=== PATIENT | female | born 1970 | race Caucasian/White ===

== ENCOUNTER 2016-11-25 20:36 | Observation (INO) ==
[2016-11-25] MEDS ORDERED: 0.9 % Sodium Chloride 1,000 ML IVC ONE (20:55)
[2016-11-25 21:26] LABS: Basophils # 0.1 K/mcL (0.0-0.2); Basophils % 0.4 %; Eosinophils # 0.2 K/mcL (0.0-0.6); Eosinophils % 1.5 %; Hematocrit 40.3 % (35.3-44.9); Hemoglobin 13.3 g/dL (11.5-15.4); Immature Granulocytes % 0.5 % (0-4); Lymphocytes # 3.2 K/mcL (0.6-4.6); Lymphocytes % 21.4 %; Mean Corpuscular Hemoglobin 31.2 pg (28.0-33.3); Mean Corpuscular Volume 94.6 fL (83.0-100.0); Mean Platelet Volume 9.5 fL (9.4-12.4); Monocytes % 6.5 %; Neutrophils # 10.4 K/mcL (1.6-8.9); Platelet Count 428 K/mcL (140-400); Red Blood Count 4.26 M/mcL (3.82-4.97); Red Cell Distribution Width 15.1 % (11.5-14.5); Segmented Neutrophils % 69.7 %
[2016-11-25 21:48] LABS: INR 1.7; Prothrombin Time 18.8 Seconds (9.4-12.1)
[2016-11-25 22:00] LABS: Albumin 3.4 g/dL (3.5-5.0); Bilirubin,Direct 0.1 mg/dL (0.0-0.5); Bilirubin,Indirect 0.2 mg/dL (0.0-1.2); Bilirubin,Total 0.3 mg/dL (0.2-1.2); Calcium 9.1 mg/dL (8.6-10.8); Globulin 3.3 g/dL (2.4-3.5); Total Protein 6.7 g/dL (6.0-8.3)
[2016-11-26 00:22] LABS: Bilirubin,Urine Negative (Negative); Blood,Urine Small (Negative); Clarity,Urine Cloudy (Clear); Color,Urine Yellow (Yellow); Glucose,Urine (UA) Normal (Normal); Ketones,Urine Negative (Negative); Leukocyte Esterase,Urine Small (Negative); Nitrite,Urine Negative (Negative); PH,Urine 5.5 pH Units (5.0-8.0); Protein,Urine Negative (Neg-Trace); Specific Gravity,Urine 1.015 (1.010-1.025); Urobilinogen,Urine Normal (Normal)
[2016-11-26 00:24] LABS: Bacteria,Urine Few per hpf (None-Few); Hyaline Casts,Urine Few per lpf (None-Few); Squamous Epithelial Cell,Urine Many per lpf (None-Few)
[2016-11-26] MEDS ORDERED: 0.9 % Sodium Chloride 1,000 ML IVC ONE (00:26)
[2016-11-26] MEDS ORDERED: Naloxone 0.4 MG/ML INJ IVP PRN (00:47)
[2016-11-26] MEDS ORDERED: Fluticasone Propionate Nasal 50 MCG/SPRAY BOTTLE NS PRN (00:49)
--- NOTE | 2016-11-26 01:18 | Emergency Department Note ---
Disposition Clinical Impression: Acute kidney injury, Dehydration, Decreased urine output Disposition: Admitted As Inpatient Condition: Good Time of Disposition: 01:29 General Adult HPI - General Chief complaint: ED General Medical Stated complaint: Dehydration, urinary problems Time Seen by Provider: 11/25/16 20:52 Source: patient Mode of arrival: ambulatory Limitations: no limitations Nursing Notes Reviewed: Yes Vital Signs Reviewed: Yes - History of Present Illness HPI Narrative: Patient presents emergency room with complaints of decreased urinary output since 9:30 this morning. She said that she has not had any urination since that time. She has a history kidney issues and dehydration. Patient was concerned because her kidney function was tested a week ago and is 1.57. She wanted to make sure that her kidneys were not being effective here today. Patient denies any chest pain shortness of breath headache or vision change. Denies any fevers or chills Onset (ago): Just [employer] Location: back Radiation: non-radiation Pain Severity: mild Pain Scale: 3 Quality: aching Consistency: constant Improves with: nothing Worsens with: movement Associated symptoms: Reports: loss of appetite, malaise Treatments Prior to Arrival: none - Related Data Home Medications Medication Instructions Recorded Confirmed Amlodipine [Amlodipine Besylate] 10 mg PO HS 05/29/15 04/28/16 Azathioprine [Imuran] 75 mg PO DAILY 05/29/15 04/28/16 Carvedilol [Coreg] 25 mg PO BID 05/29/15 04/28/16 Clopidogrel [Plavix] 75 mg PO DAILY 05/29/15 04/28/16 Divalproex (12 HR) [Depakote (12 500 mg PO BID 05/29/15 04/28/16 HR)] Magnesium Oxide [Magnesium] 500 mg PO DAILY 05/29/15 04/28/16 Omeprazole [PriLOSEC] 20 mg PO HS 05/29/15 04/28/16 Promethazine [Phenergan] 25 mg PO HS 05/29/15 04/28/16 Ropinirole HCl [Requip] 4 mg PO HS 05/29/15 04/28/16 Simvastatin [Zocor] 20 mg PO HS 05/29/15 04/28/16 Warfarin [Coumadin] 5 mg PO SUMOTUTHFRSA 05/29/15 04/28/16 clonazePAM [Klonopin] 1 mg PO HS 05/29/15 04/28/16 DULoxetine [Cymbalta] 30 mg PO BID 04/28/16 04/28/16 Diclofenac Sodium [Voltaren] 75 mg PO Q8HR 04/28/16 04/28/16 Enoxaparin [Lovenox] 80 mg SQ Q12HR 04/28/16 04/28/16 Fluticasone Propionate Nasal 1 spr NS DAILY PRN 04/28/16 04/28/16 [Flonase] Gabapentin [Neurontin] 800 mg PO TID 04/28/16 04/28/16 Hydrocodone/Acetaminophen [[place] 1 each PO BID PRN 04/28/16 04/28/16 10-325 Tablet] PredniSONE [Parth] 4 mg PO DAILY 04/28/16 04/28/16 Valsartan/Hydrochlorothiazide 1 each PO DAILY 04/28/16 04/28/16 [Diovan Hct 160-12.5 mg Tab] Warfarin [Coumadin] 2.5 mg PO WE 04/28/16 04/28/16 Allergies Allergy/AdvReac Type Severity Reaction Status Date / Time Penicillins Allergy See Verified 04/28/16 09:31 Comments phenytoin [From Dilantin] Allergy Hives Verified 04/28/16 09:31 All systems ED: reviewed and negative except as stated. Constitutional: Denies: fever, chills ENT ED: Denies: throat pain Cardiovascular: Denies: chest pain, palpitations, dyspnea on exertion Respiratory: Denies: cough, dyspnea, wheezes, hemoptysis Gastrointestinal: Reports: abdominal pain. Denies: nausea, vomiting, diarrhea Genitourinary: Denies: urgency, dysuria, frequency Musculoskeletal: Reports: back pain. Denies: neck pain Neurological: Denies: headache Past Medical History - Past Medical History Attestation: Yes The following information was validated with the patient. Source: patient Medical history: Reports: arthritis, asthma, cancer, coronary artery disease, CVA, DVT, fibromyalgia, hyperlipidemia, hypertension, other Surgical history: Reports: cholecystectomy, hysterectomy, other Psychiatric history: Reports: depression - Social History Smoking Status: Current every day smoker Smokeless Tobacco Status: No Alcohol use: Reports: none Drug use: Reports: none Physical Exam - General Limitations: no limitations General appearance: alert, in no apparent distress - Head Head exam: atraumatic, normocephalic, normal inspection - Neck Neck exam: Present: normal inspection, full ROM, trachea midline - Chest Chest inspection: Present: normal inspection, symmetric chest wall rise - Respiratory Respiratory exam: Present: normal lung sounds bilaterally - Cardiovascular Cardiovascular exam: Present: regular rate, normal rhythm, normal heart sounds - Abdominal Exam Abdominal exam: Present: soft, Non-Tender, normal bowel sounds. Absent: tenderness, distention, guarding, rebound, rigidity, Rousseau's sign, Rovsing's sign, tenderness at McBurney's Point - Extremities Exam Extremities exam: Present: normal inspection, full ROM, normal capillary refill. Absent: tenderness - Back Exam Back exam: Present: normal inspection, full ROM. Absent: tenderness (Bilateral flank discomfort) - Neurological Exam Neurological exam: Present: alert, oriented X3 - Skin Skin exam: Present: warm, dry, intact, normal color Course Course Narrative: Patient seen and examined at the time of arrival. See history of present illness. 46-year-old female presents emergency room for evaluation of dehydration. Says that she has not had urinary output since 9:30 this morning. She has a known history of kidney disease and had a creatinine drawn just over one week ago that was 1.57. She is concerned that her kidneys are getting worse because she is having bilateral flank pain and decreased urine output along with dark color. Patient denies any recent illnesses, no new medications , no fevers chills, nausea vomiting diarrhea, chest pain shortness of breath, headache or vision change. Patient's main complaint is generalized malaise muscle aches dehydration. Patient had laboratory workup completed this time single liter of fluid given for treatment. Patient does not have any history of congestive heart failure this point. Vital signs are reviewed and are stable. Lungs are clear heart is regular mucous membranes are moist. Abdomen is soft nontender nondistended with no guarding or rigidity. She was also 4 extremities with purpose. She has good capillary refill. She has good DP PT pulses bilaterally. Patient will have reevaluation disposition determined once labs and fluids are provided. - Reevaluation(s) Reevaluation #1: Fluids been given. Patient is lying complaining of a mild headache at this time. Labs show mildly elevated white blood cell count but there is a significant jump in her creatinine consistent with acute kidney insufficiency. Patient has a creatinine today of 2.95. Second liter of fluids ordered at this point. Urine was reviewed and shows blood in the urine with no acute bacteria this point. This appears to be contaminant. Patient will not be started on antibiotics. She does not have a history of renal calculi so little clinical concern for infected or impacted stone. Patient does not require antibiotics at this point. Will be to hydrate and reevaluate creatinine. Discussion was had at the bedside with the patient's family and patient was informed that recommendation for admission will be considered. Patient understands this and is happy with our treatment course of care. We will recommend admission of this time for which she feels comfortable having this completed. Hospitalist was juan and Dr. reyes review the patient's presentation symptoms medical history. Urinalysis was reviewed showing no concerning this point for infection. Patient provided with fluids and is feeling better. Vital signs of a stable throughout the course of care. No other recommendations for the hospitalist at this time. Patient will be admitted for what appears to be dehydration and acute kidney insufficiency. Multiple medical problems will be evaluated one the hospital as well including her underlying predetermine medical conditions. Patient is resting comfortably in bed in no distress at this time. We will continue to monitor in the emergency room until the admission process is completed Time: 01:28 Vital Signs Temperature 98.4 F 11/25/16 20:38 Pulse Rate 69 11/25/16 20:38 Respiratory Rate 18 11/25/16 20:38 Blood Pressure 184/103 11/25/16 20:38 O2 Sat by Pulse Oximetry 93 11/25/16 20:38 Temperature 98.4 F 11/25/16 20:38 Pulse Rate 73 11/26/16 00:49 Respiratory Rate 18 11/26/16 00:49 Blood Pressure 136/70 11/26/16 00:49 O2 Sat by Pulse Oximetry 97 11/26/16 00:49 Oxygen Delivery Oxygen Delivery Room Air Medical Decision Making - MDM Narrative Medical decision making narrative: Dehydration, acute kidney injury, generalized malaise - Medical Records Medical records reviewed: Yes I reviewed the patient's medical records. - Lab Data Lab results reviewed: Yes I reviewed the patient's lab results. Result diagrams: 11/25/16 21:19 11/25/16 21:41 Lab Results 11/25/16 11/25/16 11/25/16 Range/Units 21:19 21:19 21:28 WBC 14.9 H (4.3-11.1) K/mcL RBC 4.26 (3.82-4.97) M/mcL Hgb 13.3 (11.5-15.4) g/dL Hct 40.3 (35.3-44.9) % MCV 94.6 (83.0-100.0) fL MCH 31.2 (28.0-33.3) pg MCHC 33.0 (31.6-35.5) g/dL RDW 15.1 H (11.5-14.5) % Plt Count 428 H (140-400) K/mcL MPV 9.5 (9.4-12.4) fL Immature Gran % 0.5 (0-4) % Seg Neutrophils % 69.7 % Lymphocytes % 21.4 % Monocytes % 6.5 % Eosinophils % 1.5 % Basophils % 0.4 % Neutrophils # 10.4 H (1.6-8.9) K/mcL Lymphocytes # 3.2 (0.6-4.6) K/mcL Monocytes # 1.0 (0.0-1.3) K/mcL Eosinophils # 0.2 (0.0-0.6) K/mcL Basophils # 0.1 (0.0-0.2) K/mcL PT 18.8 H (9.4-12.1) Seconds INR 1.7 Sodium (136-145) mEq/L Potassium (3.5-4.5) mEq/L Chloride (98-109) mEq/L Carbon Dioxide (19-29) mEq/L BUN (7-20) mg/dL Creatinine (0.57-1.11) mg/dL Est GFR ( Amer) (> 60) Est GFR (Non-Af Amer) (> 60) BUN/Creatinine Ratio (6-26) Glucose (70-99) mg/dL Calculated Osmolality (280-300) Calcium (8.6-10.8) mg/dL Total Bilirubin (0.2-1.2) mg/dL Direct Bilirubin (0.0-0.5) mg/dL Indirect Bilirubin (0.0-1.2) mg/dL AST (5-34) Units/L ALT (0-55) Units/L Alkaline Phosphatase (38-126) Units/L Serum Total Protein (6.0-8.3) g/dL Albumin (3.5-5.0) g/dL Globulin (2.4-3.5) g/dL Albumin/Globulin Ratio (1.1-2.2) Lipase (8-78) Units/L Urine Color (Yellow) Urine Clarity (Clear) Urine pH (5.0-8.0) pH Units Ur Specific [place] (1.010-1.025) Urine Protein (Neg-Trace) mg/dL Urine Glucose (UA) (Normal) mg/dL Urine Ketones (Negative) mg/dL Urine Blood (Negative) Urine Nitrite (Negative) Urine Bilirubin (Negative) Urine Urobilinogen (Normal) mg/dL Ur Leukocyte Esterase (Negative) Urine Microscopic RBC (0-3) per hpf Urine Microscopic WBC (0-3) per hpf Ur Squamous Epith Cells (None-Few) per lpf Urine Bacteria (None-Few) per hpf Hyaline Casts (None-Few) per lpf Ur Culture Indicated? (NO) Specimen Rejected Hemolyzed 11/25/16 11/26/16 Range/Units 21:41 00:00 WBC (4.3-11.1) K/mcL RBC (3.82-4.97) M/mcL Hgb (11.5-15.4) g/dL Hct (35.3-44.9) % MCV (83.0-100.0) fL MCH (28.0-33.3) pg MCHC (31.6-35.5) g/dL RDW (11.5-14.5) % Plt Count (140-400) K/mcL MPV (9.4-12.4) fL Immature Gran % (0-4) % Seg Neutrophils % % Lymphocytes % % Monocytes % % Eosinophils % % Basophils % % Neutrophils # (1.6-8.9) K/mcL Lymphocytes # (0.6-4.6) K/mcL Monocytes # (0.0-1.3) K/mcL Eosinophils # (0.0-0.6) K/mcL Basophils # (0.0-0.2) K/mcL PT (9.4-12.1) Seconds INR Sodium 136 (136-145) mEq/L Potassium 4.0 (3.5-4.5) mEq/L Chloride 98 (98-109) mEq/L Carbon Dioxide 27 (19-29) mEq/L BUN 19 (7-20) mg/dL Creatinine 2.65 H (0.57-1.11) mg/dL Est GFR ( Amer) 24 L (> 60) Est GFR (Non-Af Amer) 20 L (> 60) BUN/Creatinine Ratio 7 (6-26) Glucose 120 H (70-99) mg/dL Calculated Osmolality 285 (280-300) Calcium 9.1 (8.6-10.8) mg/dL Total Bilirubin 0.3 (0.2-1.2) mg/dL Direct Bilirubin 0.1 (0.0-0.5) mg/dL Indirect Bilirubin 0.2 (0.0-1.2) mg/dL AST 15 (5-34) Units/L ALT 14 (0-55) Units/L Alkaline Phosphatase 93 (38-126) Units/L Serum Total Protein 6.7 (6.0-8.3) g/dL Albumin 3.4 L (3.5-5.0) g/dL Globulin 3.3 (2.4-3.5) g/dL Albumin/Globulin Ratio 1.0 L (1.1-2.2) Lipase 20 (8-78) Units/L Urine Color Yellow (Yellow) Urine Clarity Cloudy A (Clear) Urine pH 5.5 (5.0-8.0) pH Units Ur Specific [place] 1.015 (1.010-1.025) Urine Protein Negative (Neg-Trace) mg/dL Urine Glucose (UA) Normal (Normal) mg/dL Urine Ketones Negative (Negative) mg/dL Urine Blood Small H (Negative) Urine Nitrite Negative (Negative) Urine Bilirubin Negative (Negative) Urine Urobilinogen Normal (Normal) mg/dL Ur Leukocyte Esterase Small H (Negative) Urine Microscopic RBC 5-15 H (0-3) per hpf Urine Microscopic WBC 5-15 H (0-3) per hpf Ur Squamous Epith Cells Many H (None-Few) per lpf Urine Bacteria Few (None-Few) per hpf Hyaline Casts Few (None-Few) per lpf Ur Culture Indicated? YES A (NO) Specimen Rejected
--- NOTE | 2016-11-26 02:51 | Internal Med History&Physical ---
Date of Encounter: 11/26/16 Time of Encounter: 02:49 Assessment and Plan (1) Acute kidney injury Current visit: Yes Status: Acute rise in creatiine today to 2.65 last checked on october 04 was 1.95. noted that creatinine was 5 on 06/05 will do IVF for now, monitor urine output. check renal US, will send urien studies, CK and renal consult. (2) Dehydration Current visit: Yes Status: Acute will start IVF for hydration. denies n/v/d (3) Decreased urine output Current visit: Yes Status: Acute dcreased urine output with worsening STEPHANIA. will monitor I/Os. IVF for hydration. (4) H/O blood clots Current visit: Yes Status: Acute reports she had blood clots in her right arm and was placed on coumadin that she has been taking since last 5 yrs. unclear if she has a clear indication for continuing coumadin. her cancer is no more active and is in remission. 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 asymptomatic now. Internal Medicine - H&P: HPI Chief complaint: decreased urine output Admitted From: Home History of present illness: Ms. 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 she says that she has h/o STEPHANIA , her creat once went up to 5 which came down with IVF. she says that she feels dehydrated and came in to check if her kidneys was ok. she also reports that she had her kidneys checked on september, creat was 1.95. today at ED, her creat went up to 2.45. she denies any fever, abdominal pain, diarrhea , nausea or vomiting. denies decreased oral intake. Past Med Surg Social Fam HX - Past Medical History Medical history: arthritis, asthma, cancer, coronary artery disease, CVA, DVT, fibromyalgia, hyperlipidemia, hypertension, other Psychiatric history: depression - Past Surgical History Surgical History: cholecystectomy, hysterectomy, other - Social History Smoking Status: Current every day smoker Smokeless Tobacco Status: No Alcohol use: none Drug use: none Internal Medicine - H&P: Meds Amlodipine [Amlodipine Besylate] 10 mg PO HS 05/29/15 [History] Azathioprine [Imuran] 75 mg PO DAILY 05/29/15 [History] Carvedilol [Coreg] 25 mg PO BID 05/29/15 [History] Clopidogrel [Plavix] 75 mg PO DAILY 05/29/15 [History] Divalproex (12 HR) [Depakote (12 HR)] 500 mg PO BID 05/29/15 [History] Magnesium Oxide [Magnesium] 500 mg PO DAILY 05/29/15 [History] Omeprazole [PriLOSEC] 20 mg PO HS 05/29/15 [History] Promethazine [Phenergan] 25 mg PO HS 05/29/15 [History] Ropinirole HCl [Requip] 4 mg PO HS 05/29/15 [History] Simvastatin [Zocor] 20 mg PO HS 05/29/15 [History] Warfarin [Coumadin] 5 mg PO SUMOTUTHFRSA 05/29/15 [History] clonazePAM [Klonopin] 1 mg PO HS 05/29/15 [History] DULoxetine [Cymbalta] 30 mg PO BID 04/28/16 [History] Diclofenac Sodium [Voltaren] 75 mg PO Q8HR 04/28/16 [History] Enoxaparin [Lovenox] 80 mg SQ Q12HR 04/28/16 [History] Fluticasone Propionate Nasal [Flonase] 1 spr NS DAILY PRN 04/28/16 [History] Gabapentin [Neurontin] 800 mg PO TID 04/28/16 [History] Hydrocodone/Acetaminophen [[place] 10-325 Tablet] 1 each PO BID PRN 04/28/16 [ History] PredniSONE [Parth] 4 mg PO DAILY 04/28/16 [History] Valsartan/Hydrochlorothiazide [Diovan Hct 160-12.5 mg Tab] 1 each PO DAILY 04/28 [History] Warfarin [Coumadin] 2.5 mg PO WE 04/28/16 [History] Allergies Penicillins Allergy (Verified 04/28/16 09:31) See Comments unknown childhood reaction phenytoin [From Dilantin] Allergy (Verified 12/09/16 09:31) Hives All Systems PM: A 10-system review of systems was performed and is negative for pertinent findings except as documented above in the HPI. - Constitutional Constitutional: as per HPI - EENT Eyes: as per HPI Ears: as per HPI Nose, mouth and throat: as per HPI - Breasts Breasts: as per HPI - Cardiovascular Cardiovascular ROS IM: as per HPI - Respiratory Respiratory: as per HPI - Gastrointestinal Gastrointestinal: as per HPI - Constitutional Vitals: Temp Pulse Resp BP Pulse Ox 97.6 F 74 16 129/68 96 11/26/16 02:09 11/26/16 02:09 11/26/16 02:09 11/26/16 02:11/26/16 02:09 General appearance: Present: A&O X 3, no acute distress Exam: neck- supple chest- b/l clear, no added sounds CVS-s1 and s2, no mr//g abd- soft, non tender, bs are present ext- no edema neuro- alert and awake, no focal defecits Internal Med - H&P Results - Labs CBC & Chem 7: 11/26/16 03:34 11/25/16 21:41 Labs: Short CBC 11/26/16 Range/Units 02:13 POC Glucose 127 H (58-89)
[2016-11-26] MEDS ORDERED: clonazePAM 1 MG TABLET PO ONE (03:28)
[2016-11-26] MEDS ORDERED: rOPINIRole 1 MG TABLET PO ONE (03:30)
[2016-11-26] MEDS ORDERED: *HR* Warfarin 5 MG TABLET PO ONE (03:46)
[2016-11-26] MEDS: 0.9 % Sodium Chloride 1,000 ML IVC SCH ×2 (03:54→12:53)
[2016-11-26 03:55] LABS: Basophils # 0.1 K/mcL (0.0-0.2); Basophils % 0.5 %; Eosinophils # 0.3 K/mcL (0.0-0.6); Hematocrit 35.7 % (35.3-44.9); Hemoglobin 11.8 g/dL (11.5-15.4); Immature Granulocytes % 0.3 % (0-4); Lymphocytes # 3.6 K/mcL (0.6-4.6); Lymphocytes % 31.2 %; Mean Corpuscular HGB Conc 33.1 g/dL (31.6-35.5); Mean Corpuscular Hemoglobin 31.9 pg (28.0-33.3); Mean Corpuscular Volume 96.5 fL (83.0-100.0); Mean Platelet Volume 9.8 fL (9.4-12.4); Monocytes # 0.8 K/mcL (0.0-1.3); Monocytes % 7.1 %; Neutrophils # 6.7 K/mcL (1.6-8.9); Platelet Count 360 K/mcL (140-400); Segmented Neutrophils % 57.9 %
[2016-11-26 04:06] LABS: Calcium 8.2 mg/dL (8.6-10.8); Potassium 3.8 mEq/L (3.5-4.5)
[2016-11-26] MEDS: Gabapentin 400 MG CAPSULE PO SCH ×2 (08:41→14:58)
[2016-11-26] MEDS ORDERED: Divalproex (12 HR) 500 MG TABLET PO SCH (09:00)
[2016-11-26] MEDS ORDERED: predniSONE 1 MG TABLET PO SCH (10:40)
--- NOTE | 2016-11-26 12:31 | Nephrology Consult Note ---
Date of Encounter: 11/26/16 Time of Encounter: 10:25 Assessment and Plan (1) Acute kidney injury Status: Acute Pre-renal, non-oliguric STEPHANIA. She has a hx of prior AKIs (see HPI) and also a known medium vessel vasculitis. She denied hemoptysis, but I recommend checking serologies and renal artery imaging to screen ANCA and to assess for any ALEJANDRA. She appears to be quickly recovering with IVF. I spent >50% of my time about 25 min with her counseling/educating her about renal disease, risk factors for STEPHANIA, CKD and dehydration. I recommend she follow a renal protective strategy and to avoid nephrotoxic medications (at least avoid concomitant use if possible). Dose Rx by GFR which is a surrogate for CrCl She will need nephrology follow up to assess her labs and to screen for any development of residual CKD from the current and prior STEPHANIA events. Thank you for consulting the [facility] group. Discussed with the hospitalist team. (2) Decreased urine output Status: Acute UOP is responding to IVF. Renal imaging will be needed to assess ureters, renal anatomy and also renal artery imaging to assess for ALEJANDRA: this could be arranged perhaps as an pt, if the pt is getting discharged today (Sunday). (3) Dehydration Status: Acute See above (4) Takayasu arteriopathy Status: Chronic Will screen for GN serologies. And will need outpt follow up appt to discuss her findings or if these labs are not drawn before discharge, then I'd help order them as an outpt. History of Present Illness - Reason for Consult Consult date: 11/26/16 Acute Kidney Injury Requesting physician: Allan Yuan - Chief Complaint STEPHANIA - History of Present Illness Alexandra Fitzpatrick is a very pleasant 46 y/o WF with a pmh of Takasyu arteritis and et al who presented with dehydration. Nephrology was consulted for the STEPHANIA. She denied ever having seen a regional owner operator truck driver in the past. She voiced that she has experienced dehydration in the past, and in fact I found a severe STEPHANIA episode back in about 2015 in which her eGFR was <10. She was seen in the [facility] ER and transferred to [facility]. Notes from that hospitalization are not immediately available to me. From what she can recall, she thought she had received IVF and improved; she had not needed HD and does not recall seeing a regional owner operator truck driver at [facility]. The denied XS NSAID use OTC. She denied having any FHx of ESRD or advanced CKD. She affirmed feeling poorly with nause and decreased PO intake that started several days ago. She did not affirm active CP, renal stones or hemoptysis. Past Med Surg Social Fam HX - Past Medical History Medical history: arthritis, asthma, cancer, coronary artery disease, CVA, DVT, fibromyalgia, hyperlipidemia, hypertension, other Psychiatric history: depression - Past Surgical History Surgical History: cholecystectomy, hysterectomy, other - Social History Smoking Status: Current every day smoker Smokeless Tobacco Status: No Alcohol use: none Drug use: none - Family History Mother Living Status: Still Living Hx Family Cardiac Disorders: Yes (HTN) Hx Family Respiratory Disorders: No Hx Family Cancer: No Hx Family GI Disorders: No Hx Family Genitourinary Disorders: No Hx Family Endocrine Disorder: No Hx Family Musculoskeletal Disorders: No Hx Family Neuromuscular Disorders: No Hx Family Neurologic Disorders: No Hx Family HEENT Disorders: No Hx Family Autoimmune Disorders: No Hx Family Reproductive Disorders: No Hx Family Psychosocial Disorders: No Hx Family Medical Disorders: No Medications and Allergies Amlodipine [Amlodipine Besylate] 10 mg PO HS 05/29/15 [History] Azathioprine [Imuran] 75 mg PO DAILY 05/29/15 [History] Carvedilol [Coreg] 25 mg PO BID 05/29/15 [History] Clopidogrel [Plavix] 75 mg PO DAILY 05/29/15 [History] Divalproex (12 HR) [Depakote (12 HR)] 500 mg PO BID 05/29/15 [History] Omeprazole [PriLOSEC] 20 mg PO HS 05/29/15 [History] Promethazine [Phenergan] 25 mg PO Q6H PRN 05/29/15 [History] Ropinirole HCl [Requip] 4 mg PO HS 05/29/15 [History] Simvastatin [Zocor] 20 mg PO HS 05/29/15 [History] Warfarin [Coumadin] 5 mg PO SUMOTUWETHFR 05/29/15 [History] DULoxetine [Cymbalta] 30 mg PO BID 04/28/16 [History] Hydrocodone/Acetaminophen [[place] 10-325 Tablet] 1 each PO BID PRN 04/28/16 [ History] PredniSONE [Parth] 4 mg PO DAILY 04/28/16 [History] BuPROPion SR (12 HR) [Wellbutrin SR] 150 mg PO BID 11/26/16 [History] Cilostazol [Pletal] 100 mg PO BID 11/26/16 [History] Citalopram [CeleXA] 20 mg PO DAILY 11/26/16 [History] Gabapentin [Neurontin] 800 mg PO TID 11/26/16 [History] GuaiFENesin/Dextromethorphan [Mucinex Dm ER 600-30 mg Tablet] 600 mg PO Q12HR [History] Valsartan/Hydrochlorothiazide [Diovan Hct 160-12.5 mg Tab] 1 each PO DAILY 11/26 [History] Warfarin [Coumadin] 2.5 mg PO SA 11/26/16 [History] clonazePAM [Klonopin] 1 mg PO HS 11/26/16 [History] Allergies Penicillins Allergy (Verified 11/26/16 14:18) See Comments unknown childhood reaction phenytoin [From Dilantin] Allergy (Verified 11/26/16 14:18) Hives Review of Systems All Systems: reviewed and no additional remarkable complaints except as stated Exam - Vital Signs Vital signs: Initial Vital Signs Temp Pulse Resp BP Pulse Ox 98.4 F 69 18 184/103 93 11/25/16 20:38 11/25/16 20:38 11/25/16 20:38 11/25/16 20:38 11/25/16 20:38 Vital Signs - Last 8 Hours Temp Pulse Resp BP Pulse Ox 11/26/16 09:00 98 11/26/16 08:49 97.5 F L 76 16 144/83 98 Intake and Output 11/25/16 11/26/16 11/26/16 23:59 07:59 15:59 Intake Total 100 / 100 240 / 240 Output Total 1300 / 1300 Balance 100 / 100 -1060 / -1060 Intake: IV Fluids 100 / 100 Rocephin 1,000 MG In 100 / 100 Dextrose 5% (Minibag+) 100 ML 100 ML @ 200 mls/ hr IVPB Q24H MARIA TERESA Rx#: [id number] Oral 240 / 240 Output: Urine 1300 / 1300 Other: Meal Breakfast Percent of Meal Consumed 100% # Voids 2 Weight 84.935 kg Blood Glucose* 129 139 Patient Weight 11/26/16 23:59 Weight 84.935 kg - General Appearance General appearance: well-developed, well-nourished, appears started age, obese EENT: ATNC, PERRL, mucous membranes moist Neck: supple Respiratory: clear Cardiology: edema (trace ankle edema bilaterally), regular rate, regular rhythm , normal S1, normal S2 Gastrointestinal: normoactive bowel sounds, no tenderness, no guarding, obese Integumentary: no rash, warm and dry Neurologic: no focal deficit, no asterixis, alert and oriented x3 Musculoskeletal: no deformities, no erythema, no cyanosis Psychiatric: mood/affect appropriate, cooperative Results - Lab Results 11/26/16 03:34 11/26/16 13:49 Most recent lab results Calcium 8.2 mg/dL (8.6-10.8) L 11/26/16 03:34 I reviewed the above auto-generated data grijalva and reviewed outpatient and inpatient progress notes, labs, meds, vitals, and imaging that had been completed thus far at the time this note was started. Consult Discharge Plan - Plan Instructions: Dehydration (GEN) Referrals: Crispin Lake DO [Primary Care Provider] -
[2016-11-26 14:13] LABS: Calcium 9.1 mg/dL (8.6-10.8); Potassium 4.2 mEq/L (3.5-4.5)
[2016-11-26 15:05] VITALS: BP 139/84
--- NOTE | 2016-11-26 16:07 | Discharge Summary ---
Addendum entered and electronically signed by Trevor Andrade DO 17:41: Reviewed Discharge summary. Patient discharged on Diclofenac. Given her recent STEPHANIA I would recommend that she discontinue this medication. This was discussed with her prior to discharge. Patient is advised to avoid all NSAIDS. Patient has impriving renal function and is stable for discharge but will need to follow up with outpatient renal artery ultrasound to r/o stenosis given her Takayasus vasculitis. We did offer to conduct this testing at this admission however patient declines and wishes to be discharged and will have this testing performed as outpatient. Original Note: <Carley Angelo - Last Filed: 11/26/16 16:00> Date of Encounter: 11/26/16 Time of Encounter: 16:00 - Discharge Diagnosis (1) Acute kidney injury Priority: Primary Status: Acute Comments: The patient presented to the ED with creatinine of 2.65, patient was given IV fluids and urine output was monitored. Urinalysis was unremarkable. Today the patient's creatinine has improved to 1.94. The patient has a history of Takayasu's disease so a renal artery ultrasound ambulatory order has been placed in the patient will get that outpatient. This will see is her arteritis has contributed to her acute kidney injury. (2) Dehydration Priority: Secondary Status: Acute Comments: The patient was started on IV fluids. And urine output was monitored. (3) Decreased urine output Priority: Secondary Status: Acute Comments: IV fluids were started. Creatinine kinase and urine output was monitored. 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 Renal artery ultrasound is ordered for the patient to do as outpatient. (5) Takayasu's disease Priority: Secondary Status: Acute (6) DVT prophylaxis Priority: Secondary Status: Acute Comments: The patient reports a blood clot in her right arm 5 years ago for which she is on Coumadin. 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 We continued her Coumadin. - Discharge Medications Home Medications: Amlodipine [Amlodipine Besylate] 10 mg PO HS 05/29/15 [History] Azathioprine [Imuran] 75 mg PO DAILY 05/29/15 [History] Carvedilol [Coreg] 25 mg PO BID 05/29/15 [History] Clopidogrel [Plavix] 75 mg PO DAILY 05/29/15 [History] Divalproex (12 HR) [Depakote (12 HR)] 500 mg PO BID 05/29/15 [History] Omeprazole [PriLOSEC] 20 mg PO HS 05/29/15 [History] Promethazine [Phenergan] 25 mg PO Q6H PRN 05/29/15 [History] Ropinirole HCl [Requip] 4 mg PO HS 05/29/15 [History] Simvastatin [Zocor] 20 mg PO HS 05/29/15 [History] Warfarin [Coumadin] 5 mg PO SUMOTUWETHFR 05/29/15 [History] DULoxetine [Cymbalta] 30 mg PO BID 04/28/16 [History] Hydrocodone/Acetaminophen [[place] 10-325 Tablet] 1 each PO BID PRN 04/28/16 [ History] PredniSONE [Parth] 4 mg PO DAILY 04/28/16 [History] BuPROPion SR (12 HR) [Wellbutrin SR] 150 mg PO BID 11/26/16 [History] Cilostazol [Pletal] 100 mg PO BID 11/26/16 [History] Citalopram [CeleXA] 20 mg PO DAILY 11/26/16 [History] Gabapentin [Neurontin] 800 mg PO TID 11/26/16 [History] GuaiFENesin/Dextromethorphan [Mucinex Dm ER 600-30 mg Tablet] 600 mg PO Q12HR [History] Valsartan/Hydrochlorothiazide [Diovan Hct 160-12.5 mg Tab] 1 each PO DAILY 11/26 [History] Warfarin [Coumadin] 2.5 mg PO SA 11/26/16 [History] clonazePAM [Klonopin] 1 mg PO HS 11/26/16 [History] Allergies/Adverse Reactions: Allergies Penicillins Allergy (Verified 11/26/16 14:18) See Comments unknown childhood reaction phenytoin [From Dilantin] Allergy (Verified 11/26/16 14:18) Hives Procedures/tests Complete & Pending: Procedures Performed prior 72 hours Category Date Time Status Retroperitoneal Ultrasound - Complete [US Exams 11/26/16 02:48 Ordered retroperitoneal comp] [US] Routine EV renal artery image Routine Y 11/27/16 08:00 Ordered Date of admission: 11/26/16 00:43 Primary care physician: Rolando Villalobos Consults: 11/26/16 04:30 Consult to Nephrology [CONS] Routine Consulting Provider: Kidney Kathrin/ANDREW/JUDITH/HARPREET Reason for Consult: please evaluate for worsening STEPHANIA, no h/o CKD. Call Completed: No - Patient Status Disposition: Home, Self-Care Condition: Good - Ambulatory Orders Ambulatory Orders: EV renal artery image Time Frame: 2 Days, Facility: [facility], Location: Cardiopulmonary Svc - Discharge Instructions Instructions: Dehydration (GEN) Follow Up With: Crispin Lake DO [Primary Care Provider] - Forms: ED Satisfaction Letter, Work/School Release - Diet and Activity Diet: advance to your usual diet Interval History: Ms. 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 She presented to the ED complain of dehydration and decreased urine output. Her creatinine was 2.65. She was admitted and received IV hydration and was started on Rocephin. Urinalysis was ordered and results were unremarkable. Urine output was monitored. The next day her creatinine had improved and was 1.33. The patient asked if she could go home today. A renal artery ultrasound was recommended to her and she was told to get the procedure done as outpatient. Patient stated a clear understanding and agreed to the plan. The patient denied, fever, chills, numbness, weakness, dizziness, confusion, chest pain, and shortness of breath, nausea, vomiting, burning with urination. She was told to follow-up with her primary care physician and to come back if she should worsen. Hospital course: Ms. Fitzpatrick is a 46 year old female - Time Spent with Patient Total time spent providing and/or coordinating discharge services: - Constitutional Vitals: Temp Pulse Resp BP Pulse Ox 97.6 F 71 14 139/84 98 11/26/16 15:02 11/26/16 15:02 11/26/16 15:02 11/26/16 15:02 11/26/16 12:57 General appearance: Present: A&O X 3, no acute distress, answers questions appropriately - Head Head exam: Present: atraumatic, normal inspection - Eye Eye exam: Present: conjuntiva pink. Absent: scleral icterus - Respiratory Respiratory exam: Present: CTAB Additional comments: No wheezing, stridor, rhonchi - Cardiovascular Cardiovascular exam: Present: RRR, +S1, +S2. Absent: clicks - GI/Abdominal GI/Abdominal exam: Present: normal bowel sounds, soft. Absent: distended, guarding, tenderness - Extremities Exam Extremities exam: Present: normal inspection. Absent: tenderness - Back Exam Back exam: Present: normal inspection. Absent: CVA tenderness (L), CVA tenderness (R), tenderness - Skin Skin exam: Present: dry, intact <JonuAllan - Last Filed: 11/26/16 19:09> Date of Encounter: 11/26/16 Procedures/tests Complete & Pending: Procedures Performed prior 72 hours Category Date Time Status Retroperitoneal Ultrasound - Complete [US Exams 11/26/16 02:48 Ordered retroperitoneal comp] [US] Routine Date of admission: 11/26/16 00:43 Primary care physician: Rolando Villalobos Consults: 11/26/16 04:30 Consult to Nephrology [CONS] Routine Consulting Provider: Kidney Kathrin/ANDREW/JUDITH/HARPREET Reason for Consult: please evaluate for worsening STEPHANIA, no h/o CKD. Call Completed: No - Patient Status Functional capacity at discharge: independent ambulation Overall status at discharge: patient is back to baseline - Diet and Activity Activity: increase activity as tolerated Diet: advance to your usual diet, low salt diet Hospital course: Ms. Fitzpatrick is a 46 year old female - Time Spent with Patient Total time spent providing and/or coordinating discharge services: - Constitutional Vitals: Temp Pulse Resp BP Pulse Ox 97.6 F 71 14 139/84 98 11/26/16 15:02 11/26/16 15:02 11/26/16 15:02 11/26/16 15:02 11/26/16 12:57 - Attending Attestation I examined this patient and my medical decision-making was reviewed with the Resident Physician, Dr Angelo. I agree with the documented findings, disposition and treatment plan as described except to the extent set forth below. ppatiejennifer's creatinine improved with I IV fluids. She tolerateda regular diet. She was advised to maintain good oral hydration. She was advised to follow up closely with her PCP.
[2016-11-26] MEDS ORDERED: *HR* Warfarin 5 MG TABLET PO SCH (18:00)
[2016-11-26] MEDS ORDERED: amLODIPine 5 MG TABLET PO SCH (21:00)
[2016-11-29] MEDS ORDERED: *HR* Warfarin 2.5 MG TABLET PO SCH (18:00)
== END 2016-11-26 17:30 | disposition home or self-care (01) ==
LOC: EMEROO 20:36 → 2ANU 20:36 → SUATTDRO 11-26 00:43 → 2ANU 11-26 01:23
PROVIDERS: ADMIT Hospitalist; ATTEND Internal Medicine

== ENCOUNTER 2018-06-04 15:29 | Inpatient (IN) ==
[2018-06-04] MEDS ORDERED: 0.9 % Sodium Chloride 1,000 ML IVC ONE ×2 (15:53→16:39)
--- NOTE | 2018-06-04 16:06 | Emergency Department Note ---
Disposition Clinical Impression: Septic shock UTI (urinary tract infection) Qualifiers: Urinary tract infection type: site unspecified Hematuria presence: without hematuria Qualified Code(s): N39.0 - Urinary tract infection, site not specified Disposition: Admitted As Inpatient General Adult HPI - General Chief complaint: ED Dizziness Stated complaint: UTI/lightheaded Time Seen by Provider: 06/04/18 15:51 Source: patient Limitations: no limitations Nursing Notes Reviewed: Yes Vital Signs Reviewed: Yes - History of Present Illness HPI Narrative: 48 yo female with past medical history of hypertension, Takayasu arteritis, chronic immunosuppression presents to the emergency department with the chief complaint of a UTI and lightheadedness. Patient states she has been having urinary tract infection symptoms including burning with urination, blood in her urine, and suprapubic pressure for the past week. She states she thought it was getting better but today it acutely got worse. She has been taking [id number] Azo's on and off during this time. She now has back pain with this. She denies fever, nausea, vomiting, chest pain, shortness of breath. She states she has been drinking a lot of water but feels dehydrated. She is also on anticoagulation with warfarin. Pain Scale: 8 - Related Data Home Medications Medication Instructions Recorded Confirmed Amlodipine [Amlodipine Besylate] 10 mg PO HS 05/29/15 11/26/16 Azathioprine [Imuran] 75 mg PO DAILY 05/29/15 11/26/16 Carvedilol [Coreg] 25 mg PO BID 05/29/15 11/26/16 Clopidogrel [Plavix] 75 mg PO DAILY 05/29/15 11/26/16 Divalproex (12 HR) [Depakote (12 500 mg PO BID 05/29/15 11/26/16 HR)] Omeprazole [PriLOSEC] 20 mg PO HS 05/29/15 11/26/16 Promethazine [Phenergan] 25 mg PO Q6H PRN 05/29/15 11/26/16 Ropinirole HCl [Requip] 4 mg PO HS 05/29/15 11/26/16 Simvastatin [Zocor] 20 mg PO HS 05/29/15 11/26/16 Warfarin [Coumadin] 5 mg PO SUMOTUWETHFR 05/29/15 11/26/16 DULoxetine [Cymbalta] 30 mg PO BID 04/28/16 11/26/16 Hydrocodone/Acetaminophen [[place] 1 each PO BID PRN 04/28/16 11/26/16 10-325 Tablet] PredniSONE [Parth] 4 mg PO DAILY 04/28/16 11/26/16 BuPROPion SR (12 HR) [Wellbutrin 150 mg PO BID 11/26/16 11/26/16 SR] Cilostazol [Pletal] 100 mg PO BID 11/26/16 11/26/16 Citalopram [CeleXA] 20 mg PO DAILY 11/26/16 11/26/16 Gabapentin [Neurontin] 800 mg PO TID 11/26/16 11/26/16 GuaiFENesin/Dextromethorphan 600 mg PO Q12HR 11/26/16 11/26/16 [Mucinex Dm ER 600-30 mg Tablet] Valsartan/Hydrochlorothiazide 1 each PO DAILY 11/26/16 11/26/16 [Diovan Hct 160-12.5 mg Tab] Warfarin [Coumadin] 2.5 mg PO SA 11/26/16 11/26/16 clonazePAM [Klonopin] 1 mg PO HS 11/26/16 11/26/16 Previous Rx's Medication Instructions Recorded Oxycodone HCl/Acetaminophen 1 each PO Q6HR PRN #10 tablet 04/09/17 [Percocet 5-325 mg Tablet] Allergies Allergy/AdvReac Type Severity Reaction Status Date / Time Penicillins Allergy See Verified 04/09/17 10:14 Comments phenytoin [From Dilantin] Allergy Hives Verified 04/09/17 10:14 All systems ED: reviewed and negative except as stated. Review of Systems: As Per HPI Constitutional: Reports: chills, weakness. Denies: fever Cardiovascular: Denies: chest pain, palpitations, dyspnea on exertion Respiratory: Denies: cough, dyspnea, wheezes Gastrointestinal: Denies: abdominal pain, nausea, vomiting, diarrhea Genitourinary: Reports: urgency, dysuria, frequency, hematuria Musculoskeletal: Reports: back pain Integumentary: Denies: rash Neurological: Reports: weakness. Denies: headache Endocrine: Reports: fatigue Past Medical History - Past Medical History Medical history: Reports: arthritis, asthma, cancer, coronary artery disease, CVA, DVT, fibromyalgia, hyperlipidemia, hypertension, other Surgical history: Reports: cholecystectomy, hysterectomy, other Psychiatric history: Reports: depression - Social History Smoking Status: Current every day smoker Smokeless Tobacco Status: No Alcohol use: Reports: none Drug use: Reports: none Physical Exam - General Limitations: no limitations General appearance: alert, in no apparent distress - Head Head exam: atraumatic, normocephalic - Eye Eye exam: Present: normal appearance, PERRL, EOMI - ENT ENT exam: mucous membranes dry - Neck Neck exam: Present: normal inspection. Absent: tenderness, lymphadenopathy - Chest Chest inspection: Present: normal inspection. Absent: tenderness, rash - Respiratory Respiratory exam: Present: normal lung sounds bilaterally. Absent: respiratory distress, wheezes, stridor - Cardiovascular Cardiovascular exam: Present: regular rate, normal rhythm - Abdominal Exam Abdominal exam: Present: soft, Non-Tender. Absent: distention, guarding, rebound, rigidity - Extremities Exam Extremities exam: Present: normal inspection. Absent: tenderness, pedal edema - Neurological Exam Neurological exam: Present: alert, oriented X3 - Psychiatric Psychiatric exam: Present: normal affect - Skin Skin exam: Present: warm, dry, intact Course Vital Signs Temperature 98.1 F 06/04/18 15:36 Pulse Rate 91 06/04/18 15:36 Respiratory Rate 18 06/04/18 15:36 Blood Pressure 87/54 06/04/18 15:36 O2 Sat by Pulse Oximetry 97 06/04/18 15:36 Temperature 98.1 F 06/04/18 15:53 Pulse Rate 84 06/04/18 19:53 Respiratory Rate 16 06/04/18 19:53 Blood Pressure 96/50 06/04/18 19:53 O2 Sat by Pulse Oximetry 96 06/04/18 19:53 Oxygen Delivery Oxygen Delivery Room Air Procedures - Ultrasound-Other Narrative: Ultrasound to assess the patient's hydration status. Her inferior vena cava was performed by myself. Her ultrasound was found to be collapsible without any additional inspiratory effort. Her IVC was measured to be 1.12 cm in diameter which is significant for dehydration. Medical Decision Making - [facility] Narrative Medical decision making narrative: This patient presents with symptoms of a UTI and hypotension. The hypotension could be due to this patient's history Takayasu arteritis or due to dehydration. We will bolus the patient with fluids, obtain a urinalysis, and should the andra matthews's INR as she states it was supposed to be checked today. She does not have any other vital signs concerning for sepsis at this time. 170 - Patient reassessed after her first bolus and her blood pressure has slightly improved but is still very low. She still remains in normal sinus rhythm. Another IV will be placed and we will do another liter bolus. Patient also admits to an episode of presyncope earlier today. We will add on labs to assess for sepsis at this time with her continued low blood pressure. 184 - Guadarrama catheter was placed and urine was obtained for the urinalysis. Lab work shows hyponatremia and evidence of a urinary tract infection. We will complete the 30 mL/kg bolus and give her 2 g of Rocephin for her UTI. Spoke with the patient about plans for admission and she is understanding and agrees with this plan. 1914 - patient remains hypotensive, we will continue her fluids here in the ER and start her on Levophed though her peripheral line as a temporary measure until the antibiotics kick in. Plan is to admit to the ICU for her persistent hypotension and septic shock secondary to urinary tract infection. 1929 - Dr. Agosto has accepted the patient for admission to the ICU. He requests a stress dose of steroids due to the patient's history of immuno suppression. We will order 200 of hydrocortisone. 1999 - patient's mean arterial pressure is currently above 65. We will hold the levophed for now but keep it with her in case her pressure drops again. - Medical Records Medical records reviewed: Yes I reviewed the patient's medical records. - Lab Data Lab results reviewed: Yes I reviewed the patient's lab results. Result diagrams: 06/04/18 17:33 06/04/18 15:52 Lab Results 06/04/18 06/04/18 06/04/18 Range/Units 15:52 15:52 17:33 WBC 25.5 H (4.3-11.1) K/mcL RBC 3.42 L (3.82-4.97) M/mcL Hgb 10.7 L (11.5-15.4) g/dL Hct 32.6 L (35.3-44.9) % MCV 95.3 (83.0-100.0) fL MCH 31.3 (28.0-33.3) pg MCHC 32.8 (31.6-35.5) g/dL RDW 15.0 H (11.5-14.5) % Plt Count 300 (140-400) K/mcL MPV 9.8 (9.4-12.4) fL Seg Neutrophils % 70.0 % Band Neutrophils % 12.0 H (0-4) % Lymphocytes % 12.0 % Monocytes % 6.0 % Neutrophils # 20.9 H (1.6-8.9) K/mcL Lymphocytes # 3.1 (0.6-4.6) K/mcL Monocytes # 1.5 H (0.0-1.3) K/mcL PT 19.5 H (9.4-12.1) Seconds INR 1.7 Sodium 127 L (136-145) mEq/L Potassium 4.4 (3.5-5.1) mEq/L Chloride 93 L (98-107) mEq/L Carbon Dioxide 21 L (23-29) mEq/L BUN 26 H (6-20) mg/dL Creatinine 3.07 H (0.60-1.20) mg/dL Est GFR ( Amer) 20 L (> 60) Est GFR (Non-Af Amer) 16 L (> 60) BUN/Creatinine Ratio 8 (6-26) Glucose 165 H (70-105) mg/dL Calculated Osmolality 272 L (280-300) Lactic Acid (0.5-2.2) mmol/L Calcium 8.9 (8.6-10.3) mg/dL 06/04/18 Range/Units 17:33 WBC (4.3-11.1) K/mcL RBC (3.82-4.97) M/mcL Hgb (11.5-15.4) g/dL Hct (35.3-44.9) % MCV (83.0-100.0) fL MCH (28.0-33.3) pg MCHC (31.6-35.5) g/dL RDW (11.5-14.5) % Plt Count (140-400) K/mcL MPV (9.4-12.4) fL Seg Neutrophils % % Band Neutrophils % (0-4) % Lymphocytes % % Monocytes % % Neutrophils # (1.6-8.9) K/mcL Lymphocytes # (0.6-4.6) K/mcL Monocytes # (0.0-1.3) K/mcL PT (9.4-12.1) Seconds INR Sodium (136-145) mEq/L Potassium (3.5-5.1) mEq/L Chloride (98-107) mEq/L Carbon Dioxide (23-29) mEq/L BUN (6-20) mg/dL Creatinine (0.60-1.20) mg/dL Est GFR ( Amer) (> 60) Est GFR (Non-Af Amer) (> 60) BUN/Creatinine Ratio (6-26) Glucose (70-105) mg/dL Calculated Osmolality (280-300) Lactic Acid 1.8 (0.5-2.2) mmol/L Calcium (8.6-10.3) mg/dL - EKG Data EKG #1 EKG attestation: Yes I reviewed and interpreted this EKG. EKG results narrative: EKG obtained at 15:47 on 06/04/2018 Heart rate 85 bpm, CO interval 189, QRS duration 96, QT 396, QTC 471 Sinus rhythm with low voltage in the precordial leads. No evidence of ST segment elevations or depressions. No signs of any arrhythmias. Unchanged when compared to previous EKG dated 08/06/2016.
[2018-06-04 16:44] LABS: INR 1.7; Prothrombin Time 19.5 Seconds (9.4-12.1)
[2018-06-04 17:03] LABS: Calcium 8.9 mg/dL (8.6-10.3); Potassium 4.4 mEq/L (3.5-5.1)
[2018-06-04] MEDS ORDERED: 0.9 % Sodium Chloride 500 ML IVC ONE (17:09)
--- NOTE | 2018-06-04 17:10 | Emergency Department Note ---
Disposition Referrals: Crispin Lake DO [Primary Care Provider] - Forms: ED Satisfaction Letter General Adult HPI - General Chief complaint: ED Dizziness Stated complaint: UTI/lightheaded Time Seen by Provider: 06/04/18 15:51 Source: patient Limitations: no limitations - History of Present Illness Pain Scale: 8 - Related Data Home Medications Medication Instructions Recorded Confirmed Amlodipine [Amlodipine Besylate] 10 mg PO HS 05/29/15 11/26/16 Azathioprine [Imuran] 75 mg PO DAILY 05/29/15 11/26/16 Carvedilol [Coreg] 25 mg PO BID 05/29/15 11/26/16 Clopidogrel [Plavix] 75 mg PO DAILY 05/29/15 11/26/16 Divalproex (12 HR) [Depakote (12 500 mg PO BID 05/29/15 11/26/16 HR)] Omeprazole [PriLOSEC] 20 mg PO HS 05/29/15 11/26/16 Promethazine [Phenergan] 25 mg PO Q6H PRN 05/29/15 11/26/16 Ropinirole HCl [Requip] 4 mg PO HS 05/29/15 11/26/16 Simvastatin [Zocor] 20 mg PO HS 05/29/15 11/26/16 Warfarin [Coumadin] 5 mg PO SUMOTUWETHFR 05/29/15 11/26/16 DULoxetine [Cymbalta] 30 mg PO BID 04/28/16 11/26/16 Hydrocodone/Acetaminophen [[place] 1 each PO BID PRN 04/28/16 11/26/16 10-325 Tablet] PredniSONE [Parth] 4 mg PO DAILY 04/28/16 11/26/16 BuPROPion SR (12 HR) [Wellbutrin 150 mg PO BID 11/26/16 11/26/16 SR] Cilostazol [Pletal] 100 mg PO BID 11/26/16 11/26/16 Citalopram [CeleXA] 20 mg PO DAILY 11/26/16 11/26/16 Gabapentin [Neurontin] 800 mg PO TID 11/26/16 11/26/16 GuaiFENesin/Dextromethorphan 600 mg PO Q12HR 11/26/16 11/26/16 [Mucinex Dm ER 600-30 mg Tablet] Valsartan/Hydrochlorothiazide 1 each PO DAILY 11/26/16 11/26/16 [Diovan Hct 160-12.5 mg Tab] Warfarin [Coumadin] 2.5 mg PO SA 11/26/16 11/26/16 clonazePAM [Klonopin] 1 mg PO HS 11/26/16 11/26/16 Previous Rx's Medication Instructions Recorded Oxycodone HCl/Acetaminophen 1 each PO Q6HR PRN #10 tablet 04/09/17 [Percocet 5-325 mg Tablet] Allergies Allergy/AdvReac Type Severity Reaction Status Date / Time Penicillins Allergy See Verified 04/09/17 10:14 Comments phenytoin [From Dilantin] Allergy Hives Verified 04/09/17 10:14 Constitutional: Reports: chills, weakness. Denies: fever Cardiovascular: Denies: chest pain, palpitations, dyspnea on exertion Respiratory: Denies: cough, dyspnea, wheezes Gastrointestinal: Denies: abdominal pain, nausea, vomiting, diarrhea Genitourinary: Reports: urgency, dysuria, frequency, hematuria Musculoskeletal: Reports: back pain Integumentary: Denies: rash Neurological: Reports: weakness. Denies: headache Endocrine: Reports: fatigue Past Medical History - Past Medical History Medical history: Reports: arthritis, asthma, cancer, coronary artery disease, CVA, DVT, fibromyalgia, hyperlipidemia, hypertension, other Surgical history: Reports: cholecystectomy, hysterectomy, other Psychiatric history: Reports: depression - Social History Smoking Status: Current every day smoker Smokeless Tobacco Status: No Alcohol use: Reports: none Drug use: Reports: none Physical Exam - General Limitations: no limitations General appearance: alert, in no apparent distress Course Vital Signs Temperature 98.1 F 06/04/18 15:36 Pulse Rate 91 06/04/18 15:36 Respiratory Rate 18 06/04/18 15:36 Blood Pressure 87/54 06/04/18 15:36 O2 Sat by Pulse Oximetry 97 06/04/18 15:36 Temperature 98.1 F 06/04/18 15:53 Pulse Rate 91 06/04/18 15:53 Respiratory Rate 18 06/04/18 15:53 Blood Pressure 87/54 06/04/18 15:53 O2 Sat by Pulse Oximetry 97 06/04/18 15:53 Oxygen Delivery Oxygen Delivery Room Air Medical Decision Making - Lab Data Result diagrams: 06/04/18 15:52 Lab Results 06/04/18 06/04/18 Range/Units 15:52 15:52 PT 19.5 H (9.4-12.1) Seconds INR 1.7 Sodium 127 L (136-145) mEq/L Potassium 4.4 (3.5-5.1) mEq/L Chloride 93 L (98-107) mEq/L Carbon Dioxide 21 L (23-29) mEq/L BUN 26 H (6-20) mg/dL Creatinine 3.07 H (0.60-1.20) mg/dL Est GFR ( Amer) 20 L (> 60) Est GFR (Non-Af Amer) 16 L (> 60) BUN/Creatinine Ratio 8 (6-26) Glucose 165 H (70-105) mg/dL Calculated Osmolality 272 L (280-300) Calcium 8.9 (8.6-10.3) mg/dL Attestation Statement - Attestation Attestation: I examined this patient and my medical decision-making was reviewed with the Resident Physician. I agree with the documented findings, disposition and treatment plan as described except to the extent set forth below. Patient presents with symptoms that she thinks may be secondary to UTI with lower abdominal discomfort, vomiting and dysuria. Also had some hematuria couple days ago which has since cleared. She has bilateral back pain as well. No respiratory symptoms. She feels weak and tired, had a syncopal episode today, fell and hit her neck. She does have midline tenderness of the cervicothoracic junction without step-off or neurologic deficits. My suspicion is that she has septic shock. She thought that her blood pressure might be low because of her tachycardia did not seize arteritis, however, in review of her previous records her blood pressures have not run low in the past, and Dr. Nelson ultrasound suggested a CVP lower than 8 with a IVC diameter just over a centimeter and complete compression of the IVC with inspiration. She looks dry clinically as well, with pasty mucous membranes and dry cracked lips. She was started and a 30 mL/kg bolus of fluids of been ordered. Sepsis protocol has been initiated.
[2018-06-04 17:48] LABS: Hematocrit 32.6 % (35.3-44.9); Hemoglobin 10.7 g/dL (11.5-15.4); Mean Corpuscular HGB Conc 32.8 g/dL (31.6-35.5); Mean Corpuscular Hemoglobin 31.3 pg (28.0-33.3); Mean Corpuscular Volume 95.3 fL (83.0-100.0); Mean Platelet Volume 9.8 fL (9.4-12.4); Platelet Count 300 K/mcL (140-400); Red Blood Count 3.42 M/mcL (3.82-4.97)
[2018-06-04] MEDS ORDERED: cefTRIAXone 2,000 MG in Water for inj. (sterile) 20 ML 20 ML IVP ONE (18:07)
[2018-06-04 18:20] LABS: Lymphocytes # 3.1 K/mcL (0.6-4.6); Monocytes # 1.5 K/mcL (0.0-1.3); Neutrophils # 20.9 K/mcL (1.6-8.9)
[2018-06-04 18:21] LABS: Bilirubin,Urine Moderate (Negative); Blood,Urine Large (Negative); Clarity,Urine Cloudy (Clear); Color,Urine Orange (Yellow); Glucose,Urine (UA) Normal (Normal); Ketones,Urine 15 mg/dL (Negative); Leukocyte Esterase,Urine Large (Negative); Nitrite,Urine Positive (Negative); Protein,Urine >=300 mg/dL (Neg-Trace); Specific Gravity,Urine 1.021 (1.010-1.025); Urobilinogen,Urine Normal (Normal)
[2018-06-04 18:23] LABS: Bacteria,Urine Many per hpf (None-Few); Squamous Epithelial Cell,Urine Many per lpf (None-Few); WBC,Urine TNTC per hpf (0-3)
[2018-06-04 18:24] LABS: RBC,Urine 50-100 per hpf (0-3)
[2018-06-04] MEDS ORDERED: Norepinephrine 4 MG in D5% in Water 250 ML IVC SCH (19:15)
[2018-06-04] MEDS ORDERED: Hydrocortisone Sodium Succ 100 MG/2 ML VIAL IVP ONE (19:27)
[2018-06-04] MEDS: 0.9 % Sodium Chloride 1,000 ML IVC SCH (20:10)
--- NOTE | 2018-06-04 20:57 | Internal Med History&Physical ---
<Carley Angelo - Last Filed: 06/04/18 23:04> Date of Encounter: 06/04/18 Time of Encounter: 20:54 Internal Medicine - H&P: HPI Chief complaint: UTI Admitted From: Home Plans for Post Hospital Care: Home History of present illness: Ms. Fitzpatrick is a 48 year old female with past medical history of Takayasu's art hropathy, DVT, hypertension, mandibular cancer who presented to [facility] complaining of UTI. She stated that she decided to go to the ED after a pre-syncopal fall today, however she did not lose consciousness. She stated that she was about to let her dog outside when she became lightheaded and fell to the ground hitting her neck but not her head. She reported that she had a UTI for a week and thought that it was improving however today the symptoms worsened. She admitted to dysuria, hematuria, increased urinary frequency, suprapubic discomfort, chills. She stated that her suprapubic pain has now radiated to her back today. She was taking Azo which had minimally helped. She denied anorexia, fever, nausea, vomiting, coughing, shortness of breath, abdominal pain, chest pain, headache, change in vision, melena, hematochezia. She denies frequent urinary tract infections. She is on chronic steroids and azothioprine for her Takayasu's arthropathy. She reported that last week she had missed a few doses of her prednisone and this week she missed one dose of her prednisone. She has never been hospitalized for an adrenal crisis. She is a current smoker of 1.5ppd for 27years. She denies alcohol use and drug use. She is a full code. In the ED, initial vitals were temperature of 98.1, HR 91, EP 87/54, SPO2 97%. Urinalysis was significant for UTI and blood with RBCs. WBC 25.5, neutrophil bands 12, hemoglobin 10.7, creatinine 3.07. Cervical spine CT demonstrated no acute abnormality. Chest x-ray demonstrated low lung volumes with mild left basilar atelectasis. In the ED, she was given Rocephin, 2.5 L normal saline. She was given a stress dose of steroids Solu-cortef. Levophed was ordered due to the hypertension however it was not started the blood pressure improved. Past Med Surg Social Fam HX - Past Medical History Attestation: Yes The following information was validated with the patient. Source: patient Medical history: arthritis, asthma, cancer, coronary artery disease, CVA, DVT, fibromyalgia, hyperlipidemia, hypertension, other Additional medical history: jaw bone cancer, Takayasu's arthropathy Psychiatric history: depression - Past Surgical History Surgical History: cholecystectomy, hysterectomy, other Additional surgical history: jaw bone partial removal and bone graft. DVT removal - Social History Smoking Status: Current every day smoker Smokeless Tobacco Status: No Alcohol use: none Drug use: none - Family History Mother Living Status: Still Living Hx Family Cardiac Disorders: Yes (HTN) Hx Family Respiratory Disorders: No Hx Family Cancer: No Hx Family GI Disorders: No Hx Family Endocrine Disorder: No Hx Family Neuromuscular Disorders: No Hx Family Neurologic Disorders: No Hx Family HEENT Disorders: No Hx Family Autoimmune Disorders: No Internal Medicine - H&P: Meds RX: Amlodipine [Amlodipine Besylate] 10 mg PO HS 05/29/15 [History] RX: Azathioprine [Imuran] 75 mg PO DAILY 05/29/15 [History] RX: Carvedilol [Coreg] 25 mg PO BID 05/29/15 [History] RX: Clopidogrel [Plavix] 75 mg PO DAILY 05/29/15 [History] RX: Divalproex (12 HR) [Depakote (12 HR)] 500 mg PO BID 05/29/15 [History] RX: Omeprazole [PriLOSEC] 20 mg PO HS 05/29/15 [History] RX: Promethazine [Phenergan] 25 mg PO Q6H PRN 05/29/15 [History] RX: Ropinirole HCl [Requip] 4 mg PO HS 05/29/15 [History] RX: Simvastatin [Zocor] 20 mg PO HS 05/29/15 [History] RX: Warfarin [Coumadin] 7.5 mg PO SUMOTUWETHFR 05/29/15 [History] RX: DULoxetine [Cymbalta] 30 mg PO BID 04/28/16 [History] RX: PredniSONE [Parth] 4 mg PO DAILY 04/28/16 [History] RX: Cilostazol [Pletal] 100 mg PO BID 11/26/16 [History] RX: Citalopram [CeleXA] 20 mg PO DAILY 11/26/16 [History] RX: Gabapentin [Neurontin] 800 mg PO TID 11/26/16 [History] RX: Valsartan/Hydrochlorothiazide [Diovan Hct 160-12.5 mg Tab] 1 each PO DAILY 11/26/16 [History] RX: Warfarin [Coumadin] 5 mg PO SA 11/26/16 [History] RX: clonazePAM [Klonopin] 1 mg PO HS 11/26/16 [History] Oxycodone HCl/Acetaminophen [Percocet 5-325 mg Tablet] 1 each PO Q6HR PRN #10 tablet 04/09/17 [Rx] Allergy/AdvReac Type Severity Reaction Status Date / Time Penicillins Allergy See Verified 04/09/17 10:14 Comments phenytoin [From Dilantin] Allergy Hives Verified 04/09/17 10:14 All Systems PM: A 10-system review of systems was performed and is negative for pertinent findings except as documented above in the HPI. - Constitutional Constitutional: chills, falls, no anorexia, no fatigue, no fever(s), no malaise, no weakness - EENT Eyes: no blurry vision, no change in vision - Cardiovascular Cardiovascular ROS IM: lightheadedness, no chest pain, no diaphoresis, no dyspnea, no edema, no palpitations - Respiratory Respiratory: no cough, no dyspnea, no wheezing - Gastrointestinal Gastrointestinal: no abdominal pain, no hematochezia, no melena, no nausea, no vomiting - Genitourinary Genitourinary: dysuria, flank pain (Bilateral), pelvic pain, urinary frequency (Increased) - Musculoskeletal Musculoskeletal ROS IM: no muscle cramps, no muscle weakness, no myalgias, no stiffness - Integumentary Integumentary IM: no new lesions, no pruritus, no rash - Psychiatric Psychiatric: no confusion - Endocrine Endocrine IM: no fatigue - Constitutional Vitals: Temp Pulse Resp BP Pulse Ox 98.1 F 87 18 104/46 95 06/04/18 15:53 06/04/18 20:12 06/04/18 20:39 06/04/18 20:39 06/04/18 20:12 General appearance: Present: A&O X 3, pleasant, no acute distress Exam: Alert and oriented times 3 - Head Head exam: Present: atraumatic, normal inspection - Eye Eye exam: Present: normal appearance. Absent: scleral icterus - Neck Additional comments: Surgical scar across neck - Respiratory Respiratory exam: Present: CTAB. Absent: rales, rhonchi, wheezes - Cardiovascular Cardiovascular exam: Present: RRR, +S1, +S2 - GI/Abdominal GI/Abdominal exam: Present: normal bowel sounds, soft. Absent: guarding, tenderness - Extremities Exam Extremities exam: Present: normal inspection. Absent: calf tenderness, tenderness - Back Exam Back exam: Present: CVA tenderness (R) (Minimal). Absent: CVA tenderness (L) - Neurological Exam Neurological exam: Present: alert, oriented X3. Absent: facial droop - Psychiatric Psychiatric exam: Present: normal affect, normal mood - Skin Skin exam: Present: dry, intact Internal Med - H&P Results - Labs CBC & Chem 7: 06/04/18 17:33 06/04/18 22:18 Labs: Short CBC 06/04/18 Range/Units 17:33 WBC 25.5 H (4.3-11.1) K/mcL Hgb 10.7 L (11.5-15.4) g/dL Hct 32.6 L (35.3-44.9) % Plt Count 300 (140-400) K/mcL Neutrophils # 20.9 H (1.6-8.9) K/mcL BMP 06/04/18 15:52 Sodium 127 L Potassium 4.4 Chloride 93 L Carbon Dioxide 21 L BUN 26 H Creatinine 3.07 H Glucose 165 H Calcium 8.9 Urine 06/04/18 Range/Units Unknown Urine Color [place] A (Yellow) Urine Clarity Cloudy A (Clear) Urine pH 5.0 (5.0-8.0) pH Units Ur Specific [place] 1.021 (1.010-1.025) Urine Protein >=300 H (Neg-Trace) mg/dL Urine Glucose (UA) Normal (Normal) mg/dL - Impressions ITS Impressions Cervical Spine CT 06/04/18 17:06 IMPRESSION: 1.No acute abnormality of the cervical spine. D/ / Price Barreto MD / Price Barreto MD Interpreting Provider: Price Barreto MD Chest X-Ray 06/04/18 17:07 IMPRESSION: Low lung volumes with mild left basilar atelectasis. D/ / Jun Brito MD / Jun Brito MD Interpreting Provider: Jun Brito MD - Assessment and plan (1) Sepsis Current Visit: Yes Status: Acute Assessment and plan: Sepsis. 2 SIRS: HR 91, WBC 25.5. Initial temperature 98.1, BP 87/54 -Etiology is likely secondary to urinary tract infection. Consider pyelonephritis due to bilateral flank pain. Due to the patient's initial hypotension and history of chronic steroids for Takayasu's arthropathy for which she is most several doses the past 2 weeks consider additional adrenal insufficiency. -Neutrophil bands 12 -lactic acid 1.8 -hemodynamically stable. BP 104/46, HR 87 Plan: -patient has received 2.5 L normal saline which is in accordance to sepsis protocol of 30ml/kg. -will continue one more liter of normal saline at a rate of 100 -patient has received a stress dose steroids of hydrocortisone 200 mg -continue Rocephin IV and will change antibiotic pending urine culture sensitivity -blood culture pending -urine culture pending Qualifiers: Sepsis type: sepsis due to unspecified organism Qualified Code(s): A41.9 - Sepsis, unspecified organism (2) UTI (urinary tract infection) Current Visit: Yes Status: Acute Assessment and plan: Patient has symptomatic UTI with dysuria, hematuria, increased urinary frequency, suprapubic pain and bilateral flank pain. She is self treated with Azo that has provided minimal relief. Increase in pain and discomfort along with hematuria prior to arrival to ED. Patient denied recent instrumentation including cystoscopy and Guadarrama catheter in urethra. Urinalysis demonstrating nitrite and leukocyte esterase positive, blood, RBC 50 to 100, WBC TNTC, orange color, proteinuria, ketones denied a history of UTIs. Plan: -continue IV Rocephin. Will change antibiotics pending sensitivity. -urine culture pending -Guadarrama catheter in place Qualifiers: Urinary tract infection type: site unspecified Hematuria presence: without hematuria Qualified Code(s): N39.0 - Urinary tract infection, site not specified (3) Acute kidney injury Current Visit: No Status: Acute Assessment and plan: Acute kidney injury with initial creatinine of 3.07 Etiology is most likely both prerenal and post renal due to sepsis and UTI. Patient denies history of kidney disease. Creatinine baseline is unclear but appears to be around 1.3 GFR is below normal and appears to show some form of kidney disease. Urinalysis demonstrating nitrite and leukocyte esterase positive, blood, RBC 50 to 100, WBC TNTC, orange color, proteinuria, ketones Plan: -will continue to monitor serum creatinine -creatinine kinase pending -patient received IV fluids -continue Guadarrama catheter -consider renal ultrasound if the hematuria does not resolve -strict I&O -continue renal protective strategies including avoid nephrotoxic agents and renal dose medications (4) Anemia Current Visit: Yes Status: Acute Assessment and plan: Anemia likely from acute blood loss in urine secondary to UTI in setting of patient being on anticoagulation with Coumadin -Hemoglobin 10.7 at admission. MCV 95.3 -baseline hemoglobin 14 -urinalysis demonstrated blood and RBCs -no obvious active profuse bleeding Plan: -will continue to monitor hemoglobin with daily CBC -will continue to monitor for bleeding -will hold Coumadin due to significantly decreased hemoglobin from baseline -iron panel pending -stool occult pending Qualifiers: Anemia type: unspecified type Qualified Code(s): D64.9 - Anemia, unspecified (5) Hyponatremia Current Visit: Yes Status: Acute Assessment and plan: Hyponatremia at admission sodium 127 baseline sodium 136-140 May be secondary to possible adrenal insufficiency since the patient reported missing a few doses of her prednisone last week and one dose this week. Asymptomatic, no seizures, nausea, vomiting Plan: -patient has received 2.5 L of normal saline in ED. Will not order urine studie s of sodium and creatinine since the patient has already received normal saline fluid bolus's. Will consider ordering later if patient sodium does not improve. -will continue to monitor sodium closely, and repeat sodium level this evening (6) Takayasu arteriopathy Current Visit: No Status: Chronic Assessment and plan: History of known Takayasu arthropathy following with Dr. Concepcion at the rheumatology clinic. She takes chronic steroids of prednisone 4 mg daily along with azathioprine. She reported missing a few doses of her prednisone last week and one dose this week. She denies ever being hospitalized for an adrenal crisis. She denies symptoms including nausea, vomiting, abdominal pain, weakness, muscle cramps. -Will continue home medications of prednisone and azathioprine (7) DVT prophylaxis Current Visit: No Status: Acute Assessment and plan: SCD. No anticoagulation due to anemia. - Time Spent With Patient Total time spent is greater than 50% in coordination of care (as documented) at patient's floor/unit and/or counseling patient: Devan Ball - Last Filed: 06/04/18 23:24> Date of Encounter: 06/04/18 Internal Medicine - H&P: HPI History of present illness: Ms. Fitzpatrick is a 48 year old female All Systems PM: A 10-system review of systems was performed and is negative for pertinent findings except as documented above in the HPI. - Constitutional Vitals: Temp Pulse Resp BP Pulse Ox 97.5 F L 83 16 130/61 88 06/04/18 21:00 06/04/18 23:00 06/04/18 23:00 06/04/18 23:00 06/04/18 23:00 Internal Med - H&P Results - Labs CBC & Chem 7: 06/04/18 17:33 06/04/18 22:18 Labs: Short CBC 06/04/18 Range/Units 17:33 WBC 25.5 H (4.3-11.1) K/mcL Hgb 10.7 L (11.5-15.4) g/dL Hct 32.6 L (35.3-44.9) % Plt Count 300 (140-400) K/mcL Neutrophils # 20.9 H (1.6-8.9) K/mcL BMP 06/04/18 06/04/18 15:52 22:18 Sodium 127 L 128 L Potassium 4.4 4.0 Chloride 93 L 99 Carbon Dioxide 21 L 20 L BUN 26 H 26 H Creatinine 3.07 H 1.91 H Glucose 165 H 198 H Calcium 8.9 7.7 L Urine 06/04/18 Range/Units Unknown Urine Color [place] A (Yellow) Urine Clarity Cloudy A (Clear) Urine pH 5.0 (5.0-8.0) pH Units Ur Specific [place] 1.021 (1.010-1.025) Urine Protein >=300 H (Neg-Trace) mg/dL Urine Glucose (UA) Normal (Normal) mg/dL - Impressions ITS Impressions Cervical Spine CT 06/04/18 17:06 IMPRESSION: 1.No acute abnormality of the cervical spine. D/ / Price Barreto MD / Price Barreto MD Interpreting Provider: Price Barreto MD Chest X-Ray 06/04/18 17:07 IMPRESSION: Low lung volumes with mild left basilar atelectasis. D/ / Jun Brito MD / Jun Brito MD Interpreting Provider: Jun Brito MD - Time Spent With Patient Total time spent is greater than 50% in coordination of care (as documented) at patient's floor/unit and/or counseling patient: - Attending Attestation I performed a history and physical exam of the patient and discussed management with the resident. I reviewed the resident's note and agree with the documented findings and plan of care. Alexandra Fitzpatrick is a 48 year old woman who presented with lower back and abdominal discomfort, vomiting, macroscopic hematuria and dysuria. Vitals on arrival to the ER remarkable for hypotension. Physical exam remarkable for dry skin and mucous membranes with decreased turgor; flat affect. Labs revealing leukocytosis of 25.5, anemia at 10.7, hyponatremia at 127 and hypochloremia at 93. She also has stage III acute kidney injury with an elevation in her creatinine to 3.07. Urinalysis revealing large blood, positive nitrites and large leukocyte esterase with too numerous to count white blood cells. We will admit to monitored setting for severe sepsis secondary to urinary tract infection progressing to shock given the poor response to fluids. Stress dose steroids was given due to her chronic use of low-dose prednisone. Collect blood and urine cultures. Empiric gram-negative antibiotic coverage. Continue fluid resuscitation and repeat electrolytes in the morning. Check retroperitoneal ultrasound as well if renal function does not improve from what I presume is pre-renal STEPHANIA from poor volemia. Unclear etiology of anemia; verify result with repeat H/H and check iron studies as well as stool for occult blood. Unlikely to have had a 4gr drop in under a month just from urine without having prompted earlier assessment. Hold antihypertensives and anxiolytics tonight. DVT prophylaxis. KINJAL FARAH.
[2018-06-04] MEDS ORDERED: Naloxone 0.4 MG/ML INJ IVP PRN (21:13)
[2018-06-04 22:47] LABS: Calcium 7.7 mg/dL (8.6-10.3)
[2018-06-04] MEDS ORDERED: *HR* HYDROcodone/Acet 7.5/325 mg TABLET PO ONE (23:30)
[2018-06-05] MEDS ORDERED: *HR* Dextrose 50 % in Water (Syg) 50 ML SYRINGE IVP PRN ×2 (00:06→09:37)
[2018-06-05] MEDS ORDERED: Dextrose Gel 15 GM/37.5 ML TUBE PO PRN ×2 (00:06→09:37)
[2018-06-05] MEDS: 0.9 % Sodium Chloride 1,000 ML IVC SCH ×4 (01:06→18:13)
[2018-06-05 05:01] LABS: Basophils % 0.2 %; Hematocrit 35.1 % (35.3-44.9); Hemoglobin 11.8 g/dL (11.5-15.4); Immature Granulocytes % 0.8 % (0-4); Lymphocytes # 0.7 K/mcL (0.6-4.6); Lymphocytes % 3.1 %; Mean Corpuscular HGB Conc 33.6 g/dL (31.6-35.5); Mean Corpuscular Hemoglobin 31.6 pg (28.0-33.3); Mean Corpuscular Volume 93.9 fL (83.0-100.0); Mean Platelet Volume 9.9 fL (9.4-12.4); Monocytes # 1.2 K/mcL (0.0-1.3); Monocytes % 5.6 %; Neutrophils # 20.1 K/mcL (1.6-8.9); Platelet Count 300 K/mcL (140-400); Red Blood Count 3.74 M/mcL (3.82-4.97); Red Cell Distribution Width 14.7 % (11.5-14.5); Segmented Neutrophils % 90.3 %
[2018-06-05 05:18] LABS: Calcium 8.6 mg/dL (8.6-10.3); Potassium 3.7 mEq/L (3.5-5.1)
[2018-06-05 05:20] LABS: Iron < 10 mcg/dL (50-170); Transferrin 221 mg/dL (203-362)
[2018-06-05 05:39] LABS: Ferritin 132 ng/mL (10-120)
[2018-06-05] MEDS ORDERED: Insulin LISPRO 300 UNITS/3 ML VIAL SQ SCH ×2 (07:30→21:00)
[2018-06-05 07:37] LABS: Acinetobacter baumannii by PCR Not Detected (Not Detect); Candida albicans by PCR Not Detected (Not Detect); Candida glabrata by PCR Not Detected (Not Detect); Candida krusei by PCR Not Detected (Not Detect); Candida parapsilosis by PCR Not Detected (Not Detect); Candida tropicalis by PCR Not Detected (Not Detect); Enterobacter cloacae Cmplx PCR Not Detected (Not Detect); Enterobacteriaceae by PCR DETECTED (Not Detect); Enterococcus by PCR Not Detected (Not Detect); Escherichia coli by PCR DETECTED (Not Detect); Klebsiella oxytoca by PCR Not Detected (Not Detect); Klebsiella pneumoniae by PCR Not Detected (Not Detect); Proteus by PCR Not Detected (Not Detect); Pseudomonas aeruginosa by PCR Not Detected (Not Detect); Serratia marcescens by PCR Not Detected (Not Detect); Staphylococcus aureus by PCR Not Detected (Not Detect); Staphylococcus by PCR Not Detected (Not Detect); Streptococcus agalactiae(B)PCR Not Detected (Not Detect); Streptococcus by PCR Not Detected (Not Detect); Streptococcus pneumoniae PCR Not Detected (Not Detect); Streptococcus pyogenes (A) PCR Not Detected (Not Detect); blaKPC Carbapenem-Resist Gene Not Detected (Not Detect); mecA Methicillin-Resist Gene Not Detected (Not Detect); vanA/B Vancomycin-Resist Genes Not Detected (Not Detect)
[2018-06-05] MEDS ORDERED: predniSONE 1 MG TABLET PO SCH (09:00)
[2018-06-05] MEDS ORDERED: cefTRIAXone 1,000 MG in Water for inj. (sterile) 20 ML 10 ML IVP SCH (09:00)
[2018-06-05] MEDS ORDERED: Naloxone 0.4 MG/ML INJ IVP PRN (09:37)
[2018-06-05] MEDS ORDERED: cefTRIAXone 2,000 MG in Water for inj. (sterile) 20 ML 20 ML IVP SCH (10:00)
[2018-06-05] MEDS: *HR* HYDROcodone/Acet 10/325 mg TABLET PO PRN ×2 (10:32→18:48)
[2018-06-05] MEDS: Nicotine 7 MG PATCH.TD24 TD SCH (10:32)
[2018-06-05] MEDS ORDERED: cefTRIAXone 1,000 MG in Water for inj. (sterile) 20 ML 10 ML IVP ONE (11:00)
[2018-06-05] MEDS: Insulin LISPRO 300 UNITS/3 ML VIAL SQ SCH ×3 (12:28→20:36)
[2018-06-05] MEDS: Gabapentin 400 MG CAPSULE PO SCH ×2 (14:28→20:35)
--- NOTE | 2018-06-05 15:09 | Electrocardiograph Report ---
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
[2018-06-05] MEDS: *HR* Heparin 5,000 UNIT/ML VIAL SQ SCH (16:56)
--- NOTE | 2018-06-05 17:06 | Internal Med Progress Note ---
<Moises Retana - Last Filed: 06/05/18 17:04> Hospitalist Progress Note - Encounter Date of Encounter: 06/05/18 Time of Encounter: 08:10 - Subjective Interval History: Patient seen and examined at bedside this morning. Overall she states she is much improved. She presented initially with dysuria, chills, flank pain. She states that the symptoms are improving although she still is having some mild chills and flank pain. She has been tolerating her diet well without any symptoms of nausea, vomiting. No events overnight. - Exam Vitals: Temp Pulse Resp BP Pulse Ox 100.9 F H 95 16 127/68 97 06/05/18 16:54 06/05/18 16:54 06/05/18 14:56 06/05/18 16:54 06/05/18 16:54 Exam: Gen.: Vitals noted. No acute distress. AAOx3, resting comfortably in bed. Nontoxic appearing HEENT: PERRL/EOMI, oropharynx clear, Normocephalic, atraumatic, MMM Cardiac: RRR, no murmur, +S1/S2, No BLE edema Pulmonary: CTA bilaterally, no wheezes, rales or rhonchi, equal chest expansion, unlabored breathing Abdomen: soft, nontender, BS noted, no guarding, no palpable HSM Back: Nontender throughout. Very minimal tenderness in bilateral flank Skin: warm and dry, no visible lesions. MSK: ROM assessed, no joint swelling noted, gait no assessed while in bed. Non tender calf or clubbing Neuro: A&Ox3, moves all extremities, no focal deficits, sensation intact Psych: Appropriate mood and behavior, AOx3 - Assessment and Plan (1) Sepsis Current Visit: Yes Status: Acute Assessment and Plan: - Remains septic with 3/4 sirs criteria with temperature 100.9, heart rate 95, leukocytosis of 22.5 - Lactic acid within normal limits at 1.8 on presentation - Likely source of UTI with likely pyelonephritis, bacteremia - UA is highly suggestive of infection - Started on Rocephin on admission - Blood cultures obtained and pending. Preliminary positive for Escherichia coli's, sensitivity is pending - Urine cultures ordered - No previous culture results to base on - Patient reports symptomatic improvement with stabilization of vital signs i ncluding borderline hypotension with fluid administration. Has responded with 4 L of fluid Plan - We will continue Rocephin with increased to 2 g every 24 hours - Continue monitor sensitivities - Expect that she may continue to be intermittently febrile and septic 48 hours - If continues to not improve in this time despite antibiotics will consider CT scan to rule out perinephric abscess - Stable for transfer out of intensive care unit today. Blood pressures improved and stable (2) Acute kidney injury Current Visit: Yes Status: Resolved Assessment and Plan: - Resolved - BUNs/creatinine 19/1.27, creatinine is improved from 3.07 on admission - Etiology is likely prerenal in the setting of sepsis - Has responded to fluids - We will continue to monitor (3) UTI (urinary tract infection) Current Visit: Yes Status: Acute Assessment and Plan: As above for sepsis (4) Anemia Current Visit: Yes Status: Chronic Assessment and Plan: - H/H on presentation of 10.7/32.6 - Has improved to 11.8/35.1 despite fluid administration - This appears to be baseline levels - Iron studies obtained and she is iron deficient, we will start iron supplementation - Continue monitor. 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 Assessment and Plan: - Per history - Follows with rheumatology - On home prednisone 4 mg daily - Does not appear to be in adrenal insufficiency, we will continue home med ications (7) DVT prophylaxis Current Visit: Yes Status: Acute Assessment and Plan: Heparin subcutaneously - Time Spent with Patient Total time spent is greater than 50% in coordination of care (as documented) at patient's floor/unit and/or counseling patient: Internal Medicine: Result - Labs CBC & Chem 7: 06/05/18 04:44 06/05/18 04:44 Labs: Short CBC 06/04/18 06/05/18 Range/Units 17:33 04:44 WBC 25.5 H 22.3 H (4.3-11.1) K/mcL Hgb 10.7 L 11.8 (11.5-15.4) g/dL Hct 32.6 L 35.1 L (35.3-44.9) % Plt Count 300 300 (140-400) K/mcL Neutrophils # 20.9 H 20.1 H (1.6-8.9) K/mcL BMP 06/04/18 06/04/18 06/05/18 15:52 22:18 04:44 Sodium 127 L 128 L 136 Potassium 4.4 4.0 3.7 Chloride 93 L 99 104 Carbon Dioxide 21 L 20 L 22 L BUN 26 H 26 H 19 Creatinine 3.07 H 1.91 H 1.27 H Glucose 165 H 198 H 181 H Calcium 8.9 7.7 L 8.6 Urine 06/04/18 Range/Units Unknown Urine Color Calypso A (Yellow) Urine Clarity Cloudy A (Clear) Urine pH 5.0 (5.0-8.0) pH Units Ur Specific Blythe 1.021 (1.010-1.025) Urine Protein >=300 H (Neg-Trace) mg/dL Urine Glucose (UA) Normal (Normal) mg/dL - ABG Interpretation ABG results: PT/INR, D-dimer PT 19.5 Seconds (9.4-12.1) H 06/04/18 15:52 - Impressions Impressions Cervical Spine CT 06/04/18 17:06 IMPRESSION: 1.No acute abnormality of the cervical spine. D/ / Price Barreto MD / Price Barreto MD Interpreting Provider: Price Barreto MD Chest X-Ray 06/04/18 17:07 IMPRESSION: Low lung volumes with mild left basilar atelectasis. 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 (5) Dehydration Current Visit: No Status: Acute (6) Acute kidney injury Current Visit: Yes Status: Resolved - Time Spent with Patient Total time spent is greater than 50% in coordination of care (as documented) at patient's floor/unit and/or counseling patient: Internal Medicine: Result - Labs CBC & Chem 7: 06/05/18 04:44 06/05/18 04:44 Labs: Short CBC 06/04/18 06/05/18 Range/Units 17:33 04:44 WBC 25.5 H 22.3 H (4.3-11.1) K/mcL Hgb 10.7 L 11.8 (11.5-15.4) g/dL Hct 32.6 L 35.1 L (35.3-44.9) % Plt Count 300 300 (140-400) K/mcL Neutrophils # 20.9 H 20.1 H (1.6-8.9) K/mcL BMP 06/04/18 06/04/18 06/05/18 15:52 22:18 04:44 Sodium 127 L 128 L 136 Potassium 4.4 4.0 3.7 Chloride 93 L 99 104 Carbon Dioxide 21 L 20 L 22 L BUN 26 H 26 H 19 Creatinine 3.07 H 1.91 H 1.27 H Glucose 165 H 198 H 181 H Calcium 8.9 7.7 L 8.6 Urine 06/04/18 Range/Units Unknown Urine Color Calypso A (Yellow) Urine Clarity Cloudy A (Clear) Urine pH 5.0 (5.0-8.0) pH Units Ur Specific Blythe 1.021 (1.010-1.025) Urine Protein >=300 H (Neg-Trace) mg/dL Urine Glucose (UA) Normal (Normal) mg/dL - ABG Interpretation ABG results: PT/INR, D-dimer PT 19.5 Seconds (9.4-12.1) H 06/04/18 15:52 - Impressions Impressions Cervical Spine CT 06/04/18 17:06 IMPRESSION: 1.No acute abnormality of the cervical spine. D/ / Price Barreto MD / Price Barreto MD Interpreting Provider: Price Barreto MD Chest X-Ray 06/04/18 17:07 IMPRESSION: Low lung volumes with mild left basilar atelectasis. D/ / Jun Brito MD / Jun Brito MD Interpreting Provider: Jun Brito MD - Attending Attestation I examined this patient and my medical decision-making was reviewed with the Resident Physician on 06/05/18. I agree with the documented findings, disposition and treatment plan as described except to the extent set forth below . Ms Fitzpatrick is currently admitted for acute sepsis and UTI. She remains moderate to high risk due to potential for worsening clinical status. Ms Fitzpatrick is beginning to feel somewhat better. No fever or chills now. Blood cx positive for E coli. No GI issues. Appetite OK. at bedside and feels she is doing better. Exam alert Comfortable Mucus membranes dry Heart reg and slightly tachy (105) Lungs clear Abd soft No edema I/P 1. E coli sepsis - improving with fluids and IV abx 2. UTI - on IV abx 3. Immunocompromised Further diagnoses and plan as above. <Moises Retana - Last Filed: 06/05/18 17:04> (1) Sepsis Qualifiers: Sepsis type: sepsis due to unspecified organism Qualified Code(s): A41.9 - Sepsis, unspecified organism (3) UTI (urinary tract infection) Qualifiers: Urinary tract infection type: acute pyelonephritis Qualified Code(s): N10 - Acute pyelonephritis (4) Anemia Qualifiers: Anemia type: iron deficiency <Ross Granger - Last Filed: 06/05/18 17:23> (1) Sepsis Qualifiers: Sepsis type: Escherichia coli Qualified Code(s): A41.51 - Sepsis due to Escherichia coli [E. coli] (2) UTI (urinary tract infection) Qualifiers: Urinary tract infection type: acute pyelonephritis Qualified Code(s): N10 - Acute pyelonephritis (3) Anemia Qualifiers: Anemia type: iron deficiency Iron deficiency anemia type: other iron deficiency Qualified Code(s): D50.8 - Other iron deficiency anemias
[2018-06-05] MEDS ORDERED: 0.9 % Sodium Chloride 500 ML IVC ONE (17:45)
[2018-06-05] MEDS ORDERED: *HR* Heparin 5,000 UNIT/ML VIAL SQ SCH (18:00)
[2018-06-05] MEDS: Acetaminophen 325 MG TABLET PO PRN (18:12)
[2018-06-05] MEDS: clonazePAM 1 MG TABLET PO SCH (20:35)
[2018-06-05] MEDS: Divalproex (12 HR) 500 MG TABLET PO SCH (20:35)
[2018-06-05] MEDS: rOPINIRole 1 MG TABLET PO SCH (20:36)
[2018-06-06] MEDS: Acetaminophen 325 MG TABLET PO PRN ×4 (00:03→17:37)
[2018-06-06] MEDS: *HR* HYDROcodone/Acet 10/325 mg TABLET PO PRN ×3 (00:55→17:37)
[2018-06-06 00:59] LABS: Basophils % 0.3 %; Eosinophils % 0.2 %; Hematocrit 35.3 % (35.3-44.9); Hemoglobin 11.7 g/dL (11.5-15.4); Immature Granulocytes % 0.4 % (0-4); Lymphocytes # 1.6 K/mcL (0.6-4.6); Lymphocytes % 11.7 %; Mean Corpuscular HGB Conc 33.1 g/dL (31.6-35.5); Mean Corpuscular Hemoglobin 31.5 pg (28.0-33.3); Mean Corpuscular Volume 95.1 fL (83.0-100.0); Mean Platelet Volume 10.3 fL (9.4-12.4); Monocytes # 0.9 K/mcL (0.0-1.3); Monocytes % 6.8 %; Neutrophils # 11.1 K/mcL (1.6-8.9); Platelet Count 262 K/mcL (140-400); Red Blood Count 3.71 M/mcL (3.82-4.97); Segmented Neutrophils % 80.6 %
[2018-06-06 01:12] LABS: BUN/Creatinine Ratio 8 (6-26); Blood Urea Nitrogen 8 mg/dL (6-20); Calcium 8.5 mg/dL (8.6-10.3); Carbon Dioxide 22 mEq/L (23-29); Chloride 106 mEq/L (98-107); Glucose 95 mg/dL (70-105); Osmolality,Calculated 286 (280-300); Potassium 3.8 mEq/L (3.5-5.1); Sodium 139 mEq/L (136-145); eGFR For Non-African Americans > 60 (> 60)
[2018-06-06] MEDS ORDERED: 0.9 % Sodium Chloride 1,000 ML IVC ONE (02:28)
--- NOTE | 2018-06-06 02:32 | Event Note ---
Date of Encounter: 06/06/18 Time of Encounter: 00:01 Alerted by pts. nurse CORINE Goldstein that the pt. had a temperature of 103.2. Pt. is admitted with UTI and is meeting sepsis criteria w/elevated WBC, tachycardia, temperature of 103.2, and ordered lactic acid which came back at 2.8. Pt. has 0.9 IV fluids running at 125 mls/hr. 1000 ml bolus ordered. Blood cultures were previously ordered and pt. is currently on IVPB ceftriaxone. Cooling measures ordered as well as cooling device. Discussed plan w/pts. nurse w/instruction to monitor pt. closely and notify me immediately of any increase in sepsis criteria or adverse changes.
[2018-06-06] MEDS: 0.9 % Sodium Chloride 1,000 ML IVC SCH ×3 (04:00→21:25)
[2018-06-06] MEDS: *HR* Heparin 5,000 UNIT/ML VIAL SQ SCH ×2 (05:03→17:37)
[2018-06-06] MEDS ORDERED: Ibuprofen 600 MG TABLET PO ONE ×2 (05:35→21:10)
[2018-06-06] MEDS ORDERED: Isovue-370 500 ML BOTTLE IVP ONE (07:36)
[2018-06-06] MEDS: Insulin LISPRO 300 UNITS/3 ML VIAL SQ SCH ×4 (08:20→21:22)
[2018-06-06] MEDS: Nicotine 7 MG PATCH.TD24 TD SCH (08:28)
[2018-06-06] MEDS: predniSONE 1 MG TABLET PO SCH (08:29)
[2018-06-06] MEDS: Divalproex (12 HR) 500 MG TABLET PO SCH ×2 (08:29→21:21)
[2018-06-06] MEDS: cefTRIAXone 2,000 MG in Water for inj. (sterile) 20 ML 20 ML IVP SCH (08:30)
[2018-06-06] MEDS: Gabapentin 400 MG CAPSULE PO SCH ×3 (08:30→21:22)
[2018-06-06] MEDS: Magnesium Oxide 400 MG TABLET PO SCH (08:30)
[2018-06-06] MEDS ORDERED: AZATHIOPRINE 75 MG PO SCH (09:00)
--- NOTE | 2018-06-06 09:04 | Internal Med Progress Note ---
<Moises Retana - Last Filed: 06/06/18 16:17> Hospitalist Progress Note - Encounter Date of Encounter: 06/06/18 Time of Encounter: 09:03 - Subjective Interval History: Patient seen and examined at bedside this morning. Overall she states she is much improved. She presented initially with dysuria, chills, flank pain. She states that the symptoms are improving although she still is having some mild chills and flank pain. She has been tolerating her diet well without any symptoms of nausea, vomiting. Overnight did become febrile with Tmax of 104 rectally. Ibuprofen given and cooling blanket ordered. - Exam Vitals: Temp Pulse Resp BP Pulse Ox 98.1 F 96 18 117/64 95 06/06/18 08:47 06/06/18 07:10 06/06/18 07:10 06/06/18 07:10 06/06/18 07:10 Exam: Gen.: Vitals noted. No acute distress. AAOx3, resting comfortably in bed. Nontoxic appearing HEENT: PERRL/EOMI, oropharynx clear, Normocephalic, atraumatic, MMM Cardiac: RRR, no murmur, +S1/S2, No BLE edema Pulmonary: CTA bilaterally, no wheezes, rales or rhonchi, equal chest expansion, unlabored breathing Abdomen: soft, nontender, BS noted, no guarding, no palpable HSM Back: Nontender throughout. No flank tenderness. Skin: warm and dry, no visible lesions. MSK: ROM assessed, no joint swelling noted, gait no assessed while in bed. Non tender calf or clubbing Neuro: A&Ox3, moves all extremities, no focal deficits, sensation intact Psych: Appropriate mood and behavior, AOx3 - Assessment and Plan (1) Sepsis Current Visit: Yes Status: Acute Assessment and Plan: - Remains septic with 3/4 sirs criteria on admission with temperature 100.9, heart rate 95, leukocytosis of 22.5 - Febrile overnight with MAXIMUM TEMPERATURE of 104. Leukocytosis improving to 13.7. Heart rate in 90s. Blood pressure remains stable. - Lactic acid checked overnight and was 2.8 and trended to 1.7. Fluids have been restarted. - Likely source of pyelonephritis, bacteremia - UA is highly suggestive of infection - CT of the abdomen was obtained this morning and shows evidence of left-sided pyelonephritis without evidence of abscess formation - Started on Rocephin on admission - Blood cultures obtained and pending. Preliminary positive for Escherichia coli, sensitivity is pending - Urine cultures ordered, preliminary gram-negative mika - No previous culture results to base on Plan - We will continue Rocephin with increased to 2 g every 24 hours - Continue monitor sensitivities - Expect that she may continue to be intermittently febrile and septic 48 hours - Continue Tylenol, Motrin when necessary for fever. Patient reports improvement (2) Acute kidney injury Current Visit: Yes Status: Resolved Assessment and Plan: - Resolved - BUNs/creatinine 8/0.98, creatinine is improved from 3.07 on admission - Etiology is likely prerenal in the setting of sepsis - Has responded to fluids - We will continue to monitor (3) UTI (urinary tract infection) Current Visit: Yes Status: Acute Assessment and Plan: As above for sepsis (4) Anemia Current Visit: Yes Status: Chronic Assessment and Plan: - H/H on presentation of 10.7/32.6 - Has improved to hemoglobin of 11.7 despite fluid administration - This appears to be baseline levels - Iron studies obtained and she is iron deficient, we will start iron supplementation - Continue monitor. 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 coli pyelonephritis Current Visit: Yes Status: Acute Assessment and Plan: As above Bacteremic as well (8) DVT prophylaxis Current Visit: Yes Status: Acute Assessment and Plan: - We will continue subcutaneous prophylactic heparin and transitioned back to home warfarin for previous history of DVT - Appreciate pharmacy's help and dosing warfarin - Time Spent with Patient Total time spent is greater than 50% in coordination of care (as documented) at patient's floor/unit and/or counseling patient: Internal Medicine: Result - Labs CBC & Chem 7: 06/06/18 00:41 06/06/18 00:41 Labs: Short CBC 06/06/18 Range/Units 00:41 WBC 13.7 H (4.3-11.1) K/mcL Hgb 11.7 (11.5-15.4) g/dL Hct 35.3 (35.3-44.9) % Plt Count 262 (140-400) K/mcL Neutrophils # 11.1 H (1.6-8.9) K/mcL BMP 06/06/18 00:41 Sodium 139 Potassium 3.8 Chloride 106 Carbon Dioxide 22 L BUN 8 Creatinine 0.98 Glucose 95 Calcium 8.5 L - ABG Interpretation ABG results: PT/INR, D-dimer PT 19.5 Seconds (9.4-12.1) H 06/04/18 15:52 - Impressions Impressions Abdomen/Pelvis CT 06/06/18 07:36 IMPRESSION: Left-sided pyelonephritis. No evidence of renal abscess or other complication at this time. Status post cholecystectomy. The exam is otherwise unremarkable. D/ / Kyle Robb MD / Kyle Robb MD Interpreting Provider: Kyle Robb MD Consult Discharge Plan - Plan Referrals: Crispin Lake DO [Primary Care Provider] - 06/17/18 2:15 pm <Ross Granger - Last Filed: 06/06/18 16:49> Hospitalist Progress Note - Encounter Date of Encounter: 06/06/18 - Exam Vitals: Temp Pulse Resp BP Pulse Ox 97.9 F 79 16 123/71 96 06/06/18 15:37 06/06/18 15:37 06/06/18 15:37 06/06/18 15:37 06/06/18 15:37 - Assessment and Plan (1) Sepsis Current Visit: Yes Status: Acute (2) UTI (urinary tract infection) Current Visit: Yes Status: Acute (3) Anemia Current Visit: Yes Status: Chronic (4) 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 (5) Dehydration Current Visit: No Status: Resolved (6) Acute kidney injury Current Visit: Yes Status: Resolved (7) Hyponatremia Current Visit: Yes Status: Resolved - Time Spent with Patient Total time spent is greater than 50% in coordination of care (as documented) at patient's floor/unit and/or counseling patient: Internal Medicine: Result - Labs CBC & Chem 7: 06/06/18 00:41 06/06/18 00:41 Labs: Short CBC 06/06/18 Range/Units 00:41 WBC 13.7 H (4.3-11.1) K/mcL Hgb 11.7 (11.5-15.4) g/dL Hct 35.3 (35.3-44.9) % Plt Count 262 (140-400) K/mcL Neutrophils # 11.1 H (1.6-8.9) K/mcL BMP 06/06/18 00:41 Sodium 139 Potassium 3.8 Chloride 106 Carbon Dioxide 22 L BUN 8 Creatinine 0.98 Glucose 95 Calcium 8.5 L - ABG Interpretation ABG results: PT/INR, D-dimer PT 13.3 Seconds (9.4-12.1) H 06/06/18 15:27 - Impressions Impressions Abdomen/Pelvis CT 06/06/18 07:36 IMPRESSION: Left-sided pyelonephritis. No evidence of renal abscess or other complication at this time. Status post cholecystectomy. The exam is otherwise unremarkable. D/ / Kyle Robb MD / Kyle Robb MD Interpreting Provider: Kyle Robb MD - Attending Attestation I examined this patient and my medical decision-making was reviewed with the Resident Physician on 06/06/18. I agree with the documented findings, disposition and treatment plan as described except to the extent set forth below. Ms. Fitzpatrick is currently admitted for acute E coli sepsis with bacteremia due to E coli UTI/L pyelonephritis. She remains moderate to high risk due to potential for worsening clinical status. Ms Fitzpatrick had tough night. High fevers with chills. No CP or SOB. No cough. No abd pain. CT today shows L pyelonephritis. Exam alert Comfortable Mucus membranes dry. Heart reg and not tachy now. No wheeze Abd soft No edema Moves all extremities I/P 1. E coli sepsis and bacteremia - on IV abx. WBC much better today. 2. L pyelonephritis - informed patient she may have further fever. 3. Arteritis - continue home meds 4. STEPHANIA resolved. 5. Anemia iron deficiency Further diagnoses and plan as above. <Moises Retana - Last Filed: 06/06/18 16:17> (1) Sepsis Qualifiers: Sepsis type: Escherichia coli Qualified Code(s): A41.51 - Sepsis due to Escherichia coli [E. coli] (3) UTI (urinary tract infection) Qualifiers: Urinary tract infection type: acute pyelonephritis Qualified Code(s): N10 - Acute pyelonephritis (4) Anemia Qualifiers: Anemia type: iron deficiency Iron deficiency anemia type: other iron deficiency Qualified Code(s): D50.8 - Other iron deficiency anemias <Ross Granger - Last Filed: 06/06/18 16:49> (1) Sepsis Qualifiers: Sepsis type: Escherichia coli Qualified Code(s): A41.51 - Sepsis due to Escherichia coli [E. coli] (2) UTI (urinary tract infection) Qualifiers: Urinary tract infection type: acute pyelonephritis Qualified Code(s): N10 - Acute pyelonephritis (3) Anemia Qualifiers: Anemia type: iron deficiency Iron deficiency anemia type: other iron def iciency Qualified Code(s): D50.8 - Other iron deficiency anemias
[2018-06-06 15:50] LABS: INR 1.2; Prothrombin Time 13.3 Seconds (9.4-12.1)
[2018-06-06] MEDS ORDERED: *HR* Warfarin 5 MG TABLET PO ONE (18:00)
[2018-06-06] MEDS ORDERED: Warfarin perPT PO PRN (18:00)
[2018-06-06] MEDS: clonazePAM 1 MG TABLET PO SCH (21:21)
[2018-06-06] MEDS: rOPINIRole 1 MG TABLET PO SCH (21:22)
[2018-06-07] MEDS: *HR* HYDROcodone/Acet 10/325 mg TABLET PO PRN ×3 (01:25→22:03)
[2018-06-07 05:08] LABS: Basophils % 0.5 %; Eosinophils # 0.1 K/mcL (0.0-0.6); Eosinophils % 1.2 %; Hematocrit 30.3 % (35.3-44.9); Immature Granulocytes % 0.4 % (0-4); Lymphocytes # 1.6 K/mcL (0.6-4.6); Lymphocytes % 21.8 %; Mean Corpuscular Hemoglobin 31.1 pg (28.0-33.3); Mean Corpuscular Volume 94.1 fL (83.0-100.0); Mean Platelet Volume 10.1 fL (9.4-12.4); Monocytes # 0.6 K/mcL (0.0-1.3); Monocytes % 8.3 %; Platelet Count 248 K/mcL (140-400); Red Blood Count 3.22 M/mcL (3.82-4.97); Red Cell Distribution Width 14.8 % (11.5-14.5); Segmented Neutrophils % 67.8 %
[2018-06-07 05:11] LABS: INR 1.2; Prothrombin Time 13.1 Seconds (9.4-12.1)
[2018-06-07 05:20] LABS: BUN/Creatinine Ratio 5 (6-26); Blood Urea Nitrogen 4 mg/dL (6-20); Calcium 8.2 mg/dL (8.6-10.3); Carbon Dioxide 25 mEq/L (23-29); Chloride 110 mEq/L (98-107); Glucose 104 mg/dL (70-105); Osmolality,Calculated 287 (280-300); Potassium 3.5 mEq/L (3.5-5.1); Sodium 140 mEq/L (136-145); eGFR For Non-African Americans > 60 (> 60)
[2018-06-07] MEDS: 0.9 % Sodium Chloride 1,000 ML IVC SCH ×2 (05:31→15:43)
[2018-06-07] MEDS: *HR* Heparin 5,000 UNIT/ML VIAL SQ SCH ×2 (05:33→18:36)
[2018-06-07] MEDS: Acetaminophen 325 MG TABLET PO PRN ×2 (05:34→15:43)
[2018-06-07] MEDS: Insulin LISPRO 300 UNITS/3 ML VIAL SQ SCH ×4 (07:51→20:47)
[2018-06-07] MEDS: Magnesium Oxide 400 MG TABLET PO SCH (10:17)
[2018-06-07] MEDS: Divalproex (12 HR) 500 MG TABLET PO SCH ×2 (10:17→20:46)
[2018-06-07] MEDS: cefTRIAXone 2,000 MG in Water for inj. (sterile) 20 ML 20 ML IVP SCH (10:18)
[2018-06-07] MEDS: Nicotine 7 MG PATCH.TD24 TD SCH (10:18)
[2018-06-07] MEDS: Gabapentin 400 MG CAPSULE PO SCH ×3 (10:18→20:46)
[2018-06-07] MEDS ORDERED: *HR* Meperidine 25 MG/ML SYRINGE IVP ONE (10:20)
[2018-06-07] MEDS: predniSONE 1 MG TABLET PO SCH (10:41)
[2018-06-07] MEDS ORDERED: Aminoglycoside Consult 1 EACH MC ONE (11:42)
[2018-06-07] MEDS: Ibuprofen 600 MG TABLET PO PRN ×2 (12:14→20:46)
--- NOTE | 2018-06-07 13:30 | Internal Med Progress Note ---
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 (5) Acute kidney injury Current Visit: Yes Status: Resolved (6) Hyponatremia Current Visit: Yes Status: Resolved - Time Spent with Patient Total time spent is greater than 50% in coordination of care (as documented) at patient's floor/unit and/or counseling patient: Internal Medicine: Result - Labs CBC & Chem 7: 06/07/18 04:19 06/07/18 04:19 Labs: Short CBC 06/07/18 Range/Units 04:19 WBC 7.4 (4.3-11.1) K/mcL Hgb 10.0 L D (11.5-15.4) g/dL Hct 30.3 L (35.3-44.9) % Plt Count 248 (140-400) K/mcL Neutrophils # 5.0 (1.6-8.9) K/mcL BMP 06/07/18 04:19 Sodium 140 Potassium 3.5 Chloride 110 H Carbon Dioxide 25 BUN 4 L Creatinine 0.77 Glucose 104 Calcium 8.2 L - ABG Interpretation ABG results: PT/INR, D-dimer PT 13.1 Seconds (9.4-12.1) H 06/07/18 04:19 Consult Discharge Plan - Plan Referrals: Crispin Lake DO [Primary Care Provider] - 06/17/18 2:15 pm - Attending Attestation I examined this patient and my medical decision-making was reviewed with the Resident Physician on 06/07/18. I agree with the documented findings, disposition and treatment plan as described except to the extent set forth below. Ms Fitzpatrick is currently admitted for acute E coli pyelonephritis and bacteremia. She remains moderate to high risk due to potential for worsening clinical status. Ms Fitzpatrick was doing OK overnight and was going to be discharged. She developed chills and fever again today. No pain now. No nausea or vomiting. Exam Alert Shaking Mucus membranes dry Heart reg and not tachy No wheeze Abd soft I/P 1. Sepsis due to E coli bacteremia from E coli UTI - continue IV abx. Febrile again today. Supportive care overnight. If persists tomorrow will recheck CT to r/o abscess. 2. STEPHANIA resolved 3. Takayau arteriopathy Further diagnoses and plan as above. <VilmaMoises dyer - Last Filed: 06/07/18 16:13> Hospitalist Progress Note - Encounter Date of Encounter: 06/07/18 Time of Encounter: 13:26 - Subjective Interval History: Patient seen and examined at bedside this morning. She states that she has been previously doing very well however suddenly this morning she did have an episode of diaphoresis, chills, flank pain and urinary urgency. She has been afebrile overnight however following this episode temperature was noted to be 103. On re-evaluation, patient reports improvement of symptoms. Remains febrile at 102 but does not feel ill. - Exam Vitals: Temp Pulse Resp BP Pulse Ox 103.1 F H 99 16 122/60 94 06/07/18 11:46 06/07/18 11:46 06/07/18 11:46 06/07/18 11:46 06/07/18 11:46 Exam: Gen.: Vitals noted. No acute distress. AAOx3, resting comfortably in bed. rigors present HEENT: PERRL/EOMI, oropharynx clear, Normocephalic, atraumatic, MMM Cardiac: RRR, no murmur, +S1/S2, No BLE edema Pulmonary: CTA bilaterally, no wheezes, rales or rhonchi, equal chest expansion, unlabored breathing Abdomen: soft, nontender, BS noted, no guarding, no palpable HSM Back: Nontender throughout. No flank tenderness. Skin: warm and dry, no visible lesions. MSK: ROM assessed, no joint swelling noted, gait no assessed while in bed. Non tender calf or clubbing Neuro: A&Ox3, moves all extremities, no focal deficits, sensation intact Psych: Appropriate mood and behavior, AOx3 - Assessment and Plan (1) Sepsis Current Visit: Yes Status: Acute Assessment and Plan: - Remains septic with 3/4 sirs criteria on admission with temperature 100.9, heart rate 95, leukocytosis of 22.5 - Continues to meet sepsis criteria with fever of 103.1, heart rate 90s. Leukocytosis is improving from 13-7.4 Blood pressure remains stable. - Lactic acid checked overnight and was 2.8 and trended to 1.7. - Likely source of pyelonephritis, bacteremia - UA is highly suggestive of infection - CT of the abdomen was obtained 06/07/18 shows evidence of left-sided pyelonephritis without evidence of abscess formation - Started on Rocephin on admission - Blood cultures obtained and pending. Preliminary positive for Escherichia coli, pansensitive - Urine cultures ordered, Escherichia coli, pansensitive - Repeat blood cultures on 06/06/18 are so far negative for growth 2 - No previous culture results to base on Plan - We will continue Rocephin with increased to 2 g every 24 hours - Continue monitor sensitivities - Expect that she may continue to be intermittently febrile and septic 48 hours - Continue Tylenol, Motrin when necessary for fever. - If patient continues to experience fevers, remains septic or if blood cultures continue to be positive, we will consider follow-up CT scan to evaluate for abscess formation. - Antibiotic regimen anticipated to be ciprofloxacin for 14 days from negative cultures, expected treatment through 06/20/18 (2) Acute kidney injury Current Visit: Yes Status: Resolved Assessment and Plan: - Resolved - BUNs/creatinine 4/0.77, creatinine is improved from 3.07 on admission - Etiology is likely prerenal in the setting of sepsis - Has responded to fluids - We will continue to monitor (3) UTI (urinary tract infection) Current Visit: Yes Status: Acute Assessment and Plan: As above for sepsis (4) Anemia Current Visit: Yes Status: Chronic Assessment and Plan: - H/H on presentation of 10.7/32.6 - Has remained stable at 10.0 despite fluid administration - This appears to be baseline levels - Iron studies obtained and she is iron deficient, we will start iron supplementation - Continue monitor. 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 coli pyelonephritis Current Visit: Yes Status: Acute Assessment and Plan: As above Bacteremic as well (8) DVT prophylaxis Current Visit: Yes Status: Acute Assessment and Plan: restarted home coumadin continue heparin until therapeutic INR - Time Spent with Patient Total time spent is greater than 50% in coordination of care (as documented) at patient's floor/unit and/or counseling patient: Internal Medicine: Result - Labs CBC & Chem 7: 06/07/18 04:19 06/07/18 04:19 Labs: Short CBC 06/07/18 Range/Units 04:19 WBC 7.4 (4.3-11.1) K/mcL Hgb 10.0 L D (11.5-15.4) g/dL Hct 30.3 L (35.3-44.9) % Plt Count 248 (140-400) K/mcL Neutrophils # 5.0 (1.6-8.9) K/mcL BMP 06/07/18 04:19 Sodium 140 Potassium 3.5 Chloride 110 H Carbon Dioxide 25 BUN 4 L Creatinine 0.77 Glucose 104 Calcium 8.2 L - ABG Interpretation ABG results: PT/INR, D-dimer PT 13.1 Seconds (9.4-12.1) H 06/07/18 04:19 <Ross Granger - Last Filed: 06/07/18 15:43> (1) Sepsis Qualifiers: Sepsis type: Escherichia coli Qualified Code(s): A41.51 - Sepsis due to Escherichia coli [E. coli] (2) UTI (urinary tract infection) Qualifiers: Urinary tract infection type: acute pyelonephritis Qualified Code(s): N10 - Acute pyelonephritis (3) Anemia Qualifiers: Anemia type: iron deficiency Iron deficiency anemia type: other iron deficiency Qualified Code(s): D50.8 - Other iron deficiency anemias <Moises Retana - Last Filed: 06/07/18 16:13> (1) Sepsis Qualifiers: Sepsis type: Escherichia coli Qualified Code(s): A41.51 - Sepsis due to Escherichia coli [E. coli] (3) UTI (urinary tract infection) Qualifiers: Urinary tract infection type: acute pyelonephritis Qualified Code(s): N10 - Acute pyelonephritis (4) Anemia Qualifiers: Anemia type: iron deficiency Iron deficiency anemia type: other iron deficiency Qualified Code(s): D50.8 - Other iron deficiency anemias
[2018-06-07] MEDS ORDERED: *HR* Warfarin 7.5 MG TABLET PO ONE (18:00)
[2018-06-07] MEDS: rOPINIRole 1 MG TABLET PO SCH (20:46)
[2018-06-07] MEDS: clonazePAM 1 MG TABLET PO SCH (20:46)
[2018-06-08] MEDS ORDERED: *HR* OxyCODONE Immed Rel 5 MG TABLET PO ONE (00:12)
[2018-06-08] MEDS: 0.9 % Sodium Chloride 1,000 ML IVC SCH ×3 (00:31→08:28)
[2018-06-08] MEDS: *HR* Heparin 5,000 UNIT/ML VIAL SQ SCH (06:01)
[2018-06-08 06:42] LABS: Basophils % 0.4 %; Eosinophils # 0.3 K/mcL (0.0-0.6); Eosinophils % 3.1 %; Hematocrit 28.2 % (35.3-44.9); Hemoglobin 9.4 g/dL (11.5-15.4); Immature Granulocytes % 0.6 % (0-4); Lymphocytes % 24.1 %; Mean Corpuscular HGB Conc 33.3 g/dL (31.6-35.5); Mean Corpuscular Volume 93.1 fL (83.0-100.0); Mean Platelet Volume 10.1 fL (9.4-12.4); Monocytes # 1.1 K/mcL (0.0-1.3); Monocytes % 12.7 %; Neutrophils # 4.9 K/mcL (1.6-8.9); Platelet Count 260 K/mcL (140-400); Red Blood Count 3.03 M/mcL (3.82-4.97); Segmented Neutrophils % 59.1 %
[2018-06-08 06:56] LABS: INR 1.4; Prothrombin Time 15.9 Seconds (9.4-12.1)
[2018-06-08 07:02] LABS: BUN/Creatinine Ratio 9 (6-26); Blood Urea Nitrogen 7 mg/dL (6-20); Calcium 8.6 mg/dL (8.6-10.3); Carbon Dioxide 25 mEq/L (23-29); Chloride 110 mEq/L (98-107); Glucose 124 mg/dL (70-105); Osmolality,Calculated 297 (280-300); Potassium 3.6 mEq/L (3.5-5.1); Sodium 144 mEq/L (136-145); eGFR For Non-African Americans > 60 (> 60)
[2018-06-08] MEDS: Insulin LISPRO 300 UNITS/3 ML VIAL SQ SCH ×2 (07:45→11:00)
[2018-06-08] MEDS: cefTRIAXone 2,000 MG in Water for inj. (sterile) 20 ML 20 ML IVP SCH (08:21)
[2018-06-08] MEDS: predniSONE 1 MG TABLET PO SCH (08:22)
[2018-06-08] MEDS: Gabapentin 400 MG CAPSULE PO SCH (08:22)
[2018-06-08] MEDS: Divalproex (12 HR) 500 MG TABLET PO SCH (08:22)
[2018-06-08] MEDS: Nicotine 7 MG PATCH.TD24 TD SCH (08:22)
[2018-06-08] MEDS: Magnesium Oxide 400 MG TABLET PO SCH (08:23)
[2018-06-08] MEDS: *HR* HYDROcodone/Acet 10/325 mg TABLET PO PRN (08:28)
[2018-06-08] MEDS: Ibuprofen 600 MG TABLET PO PRN (10:10)
[2018-06-08 10:22] VITALS: BP 145/65
[2018-06-08] MEDS ORDERED: *HR* Enoxaparin 100 MG/ML SYRINGE SQ STA (11:20)
--- NOTE | 2018-06-08 11:20 | Discharge Summary ---
- NOTES TO OUTPATIENT PROVIDER Notes to Outpatient Provider: Ms Fitzpatrick was admitted with acute pyelo and E coli bacteremia. Discharged on PO abx. Orders not resulted at time of discharge: Pending orders 06/04/18 17:33 Culture,Blood [BC] Stat 06/06/18 00:41 Culture,Blood [BC] Stat 06/09/18 04:00 INR/PT [Prothrombin Time INR] [COAG] AM 0400 Date of Encounter: 06/08/18 Time of Encounter: 11:14 - Discharge Diagnosis (1) Sepsis Priority: Primary Status: Acute Qualifiers: Sepsis type: Escherichia coli Qualified Code(s): A41.51 - Sepsis due to Escherichia coli [E. coli] (2) UTI (urinary tract infection) Priority: Primary Status: Acute Qualifiers: Urinary tract infection type: acute pyelonephritis Qualified Code(s): N10 - Acute pyelonephritis (3) Anemia Priority: Secondary Status: Chronic Qualifiers: Anemia type: iron deficiency Iron deficiency anemia type: other iron deficiency Qualified Code(s): D50.8 - Other iron deficiency anemias (4) Takayasu arteriopathy Priority: Secondary Status: Chronic (5) E coli bacteremia Priority: Secondary Status: Acute (6) Tobacco abuse Priority: Secondary Status: Chronic Hospital course: Ms. Fitzpatrick is a 48 year old female Time spent discussing smoking cessation with patient: 3 to 10 minutes - Time Spent with Patient Total time spent providing and/or coordinating discharge services: 38min - Discharge Medications Prescriptions: Enoxaparin [Lovenox] 80 mg SQ Q12HR #10 syr Sulfamethoxazole/Trimeth DS [Bactrim DS] 1 each PO BID #24 tablet Home Medications: RX: Carvedilol [Coreg] 25 mg PO BID 05/29/15 [History] RX: Clopidogrel [Plavix] 75 mg PO DAILY 05/29/15 [History] RX: Divalproex (12 HR) [Depakote (12 HR)] 500 mg PO BID 05/29/15 [History] RX: Omeprazole [PriLOSEC] 20 mg PO HS 05/29/15 [History] RX: Promethazine [Phenergan] 25 mg PO Q6H PRN 05/29/15 [History] RX: Simvastatin [Zocor] 20 mg PO HS 05/29/15 [History] RX: Warfarin [Coumadin] 7.5 mg PO MOTUWEFR 05/29/15 [History] RX: Gabapentin [Neurontin] 800 mg PO TID 11/26/16 [History] RX: clonazePAM [Klonopin] 1 mg PO HS 11/26/16 [History] RX: Amlodipine Besylate 10 mg PO DAILY 06/04/18 [History] RX: Azathioprine [Azasan] 75 mg PO DAILY 06/04/18 [History] RX: Citalopram Hydrobromide [Celexa] 40 mg PO DAILY 06/04/18 [History] RX: HYDROcodone/Acet 10/325 mg [Casar 10-325 mg] 1 tab PO Q6HR PRN 06/04/18 [History] RX: Irbesartan/Hydrochlorothiazide [Avalide 150-12.5 mg Tablet] 1 tab PO DAILY 06/04/18 [History] RX: Magnesium Oxide [Magnesium] 500 mg PO DAILY 06/04/18 [History] RX: Ropinirole HCl [Requip Xl] 4 mg PO HS 06/04/18 [History] RX: Warfarin Sodium 5 mg PO SUTHSA 06/04/18 [History] RX: predniSONE [PredniSONE] 4 mg PO DAILY 06/04/18 [History] Enoxaparin [Lovenox] 80 mg SQ Q12HR #10 syr 06/08/18 [Rx] RX: Ferrous Sulfate 325 mg PO BIDWM tablet 06/08/18 [Rx] RX: Nicotine Patch [Nicoderm] 7 mg TD DAILY patch.td24 06/08/18 [Rx] Sulfamethoxazole/Trimeth DS [Bactrim DS] 1 each PO BID #24 tablet 06/08/18 [Rx] Allergies/Adverse Reactions: Allergy/AdvReac Type Severity Reaction Status Date / Time Penicillins Allergy See Verified 04/09/17 10:14 Comments phenytoin [From Dilantin] Allergy Hives Verified 04/09/17 10:14 Date of admission: 06/04/18 20:48 Primary care physician: Crispin Lake DO Discharging clinician: Ross Granger Anticipated date of discharge: 06/08/18 - Constitutional Vitals: Temp Pulse Resp BP Pulse Ox 100.1 F H 84 15 145/65 95 06/08/18 10:21 06/08/18 10:21 06/08/18 10:21 06/08/18 10:21 06/08/18 10:21 General appearance: Present: A&O X 3, pleasant Exam: See below - Head Head exam: Present: normocephalic - Eye Eye exam: Present: EOMI, conjuntiva pink - ENT ENT exam: Present: mucous membranes moist - Respiratory Respiratory exam: Present: CTAB. Absent: wheezes - Cardiovascular Cardiovascular exam: Present: RRR. Absent: tachycardia - GI/Abdominal GI/Abdominal exam: Present: soft. Absent: tenderness - Extremities Exam Extremities exam: Present: warm. Absent: tenderness - Neurological Exam Neurological exam: Present: alert, oriented X3 - Skin Skin exam: Present: dry, warm - Patient Status Disposition: Home, Self-Care Condition: Good Functional capacity at discharge: independent ambulation Overall status at discharge: patient is progressing back to baseline - Discharge Instructions Follow Up With: Crispin Lake DO [Primary Care Provider] - 06/17/18 2:15 pm - Diet and Activity Activity: increase activity as tolerated Diet: advance to your usual diet
[2018-06-08] MEDS ORDERED: *HR* Warfarin 7.5 MG TABLET PO ONE (18:00)
== END 2018-06-08 11:43 | disposition home or self-care (01) | DRG 720 ==
LOC: EMEROOARM 15:29 → ICNU 15:29 → SUATTDRO 20:48 → 3ANU 06-05 14:08
PROVIDERS: ADMIT Internal Medicine; ATTEND Internal Medicine

== ENCOUNTER 2019-04-06 16:40 | Observation (INO) ==
[2019-04-06] MEDS ORDERED: 0.9 % Sodium Chloride 1,000 ML IVC ONE ×2 (17:33→18:11)
[2019-04-06] MEDS ORDERED: cefTRIAXone 1,000 MG in Water for inj. (sterile) 10 ML IVP ONE (18:11)
[2019-04-06] MEDS ORDERED: Azithromycin 500 MG in 0.9 % Sodium Chloride 250 ML IVPB ONE (18:11)
[2019-04-06 18:17] LABS: Basophils % 0.2 %; Eosinophils # 0.1 K/mcL (0.0-0.6); Eosinophils % 0.4 %; Hematocrit 31.1 % (35.3-44.9); Immature Granulocytes % 0.5 % (0-4); Lymphocytes # 2.2 K/mcL (0.6-4.6); Lymphocytes % 13.2 %; Mean Corpuscular HGB Conc 35.4 g/dL (31.6-35.5); Mean Corpuscular Hemoglobin 32.7 pg (28.0-33.3); Mean Corpuscular Volume 92.6 fL (83.0-100.0); Mean Platelet Volume 9.4 fL (9.4-12.4); Monocytes # 0.6 K/mcL (0.0-1.3); Monocytes % 3.5 %; Neutrophils # 13.7 K/mcL (1.6-8.9); Platelet Count 384 K/mcL (140-400); Red Blood Count 3.36 M/mcL (3.82-4.97); Segmented Neutrophils % 82.2 %; White Blood Count 16.7 K/mcL (4.3-11.1)
[2019-04-06 18:18] LABS: Bilirubin,Urine Small (Negative); Blood,Urine Negative (Negative); Clarity,Urine Cloudy (Clear); Color,Urine Yellow (Yellow); Glucose,Urine (UA) Normal (Normal); Ketones,Urine Negative (Negative); Leukocyte Esterase,Urine Large (Negative); Nitrite,Urine Negative (Negative); Protein,Urine Negative (Neg-Trace); Specific Gravity,Urine 1.022 (1.010-1.025); Urobilinogen,Urine Normal (Normal)
[2019-04-06 18:21] LABS: Bacteria,Urine Moderate per hpf (None-Few); Hyaline Casts,Urine None Seen per lpf (None-Few); Squamous Epithelial Cell,Urine Many per lpf (None-Few); WBC,Urine 15-30 per hpf (0-3)
[2019-04-06 18:29] LABS: Amphetamine Screen,Urine Negative ng/mL (Cutoff=1000); Barbiturate Screen,Urine Negative ng/mL (Cutoff=200); Benzodiazepines Screen,Urine Negative ng/mL (Cutoff=200); Cannabinoid Screen,Urine Negative ng/mL (Cutoff = 50); Cocaine Screen,Urine Negative ng/mL (Cutoff= 300); Opiate Screen,Urine Positive ng/mL (Cutoff=300); Phencyclidine Screen,Urine Negative ng/mL (Cutoff=25)
[2019-04-06 18:31] LABS: Alanine Aminotransferase 17 Units/L (7-52); Albumin 3.8 g/dL (3.5-5.7); Albumin/Globulin Ratio 1.6 (1.1-2.2); Alkaline Phosphatase 65 Units/L (34-104); Aspartate Amino Transferase 41 Units/L (13-39); BUN/Creatinine Ratio 14 (6-26); Bilirubin,Direct 0.1 mg/dL (0.0-0.2); Bilirubin,Indirect 0.2 mg/dL (0.0-1.0); Bilirubin,Total 0.3 mg/dL (0.3-1.0); Blood Urea Nitrogen 34 mg/dL (6-20); Calcium 8.8 mg/dL (8.6-10.3); Carbon Dioxide 26 mEq/L (23-29); Chloride 83 mEq/L (98-107); Ethanol < 10 mg/dL (Less than 10); Globulin 2.4 g/dL (2.4-3.5); Glucose 112 mg/dL (70-105); Osmolality,Calculated 258 (280-300); Sodium 120 mEq/L (136-145); Total Protein 6.2 g/dL (6.4-8.9); Troponin I < 0.03 ng/mL (< 0.04); eGFR For African Americans 26 (> 60); eGFR For Non-African Americans 21 (> 60)
[2019-04-06 18:42] LABS: Thyroid Stimulating Hormone 2.799 mcIU/mL (0.340-5.600)
[2019-04-06 19:17] LABS: VBG HCO3 26 mEq/L (21-27); VBG PCO2 36 mmHg (41-51); VBG PH 7.47 pH Units (7.32-7.42); VBG PO2 91 mmHg (25-50)
[2019-04-06 20:58] LABS: Calcium 8.1 mg/dL (8.6-10.3); Potassium 3.8 mEq/L (3.5-5.1)
[2019-04-06] MEDS ORDERED: Nicotine 2 MG GUM BC PRN (21:32)
[2019-04-06] MEDS ORDERED: Naloxone 0.4 MG/ML INJ IVP PRN (21:32)
[2019-04-06] MEDS ORDERED: Ropinirole Hcl [Requip Xl] 4 MG PO SCH (21:45)
[2019-04-06 22:24] LABS: Calcium 8.2 mg/dL (8.6-10.3); Potassium 3.7 mEq/L (3.5-5.1)
[2019-04-06] MEDS: Nicotine 14 MG PATCH.TD24 TD SCH (22:27)
[2019-04-06] MEDS: *HR* HYDROcodone/Acet 10/325 mg TABLET PO PRN (22:36)
[2019-04-07 01:32] LABS: Sodium, Urine 19.9 mEq/L
[2019-04-07 02:41] LABS: Basophils % 0.3 %; Eosinophils # 0.1 K/mcL (0.0-0.6); Eosinophils % 0.8 %; Hematocrit 32.7 % (35.3-44.9); Hemoglobin 11.7 g/dL (11.5-15.4); Immature Granulocytes % 0.3 % (0-4); Lymphocytes # 2.5 K/mcL (0.6-4.6); Lymphocytes % 20.7 %; Mean Corpuscular HGB Conc 35.8 g/dL (31.6-35.5); Mean Corpuscular Hemoglobin 33.1 pg (28.0-33.3); Mean Corpuscular Volume 92.4 fL (83.0-100.0); Mean Platelet Volume 9.5 fL (9.4-12.4); Monocytes # 0.6 K/mcL (0.0-1.3); Monocytes % 4.8 %; Neutrophils # 8.7 K/mcL (1.6-8.9); Platelet Count 382 K/mcL (140-400); Red Blood Count 3.54 M/mcL (3.82-4.97); Red Cell Distribution Width 14.7 % (11.5-14.5); Segmented Neutrophils % 73.1 %; White Blood Count 11.9 K/mcL (4.3-11.1)
[2019-04-07 02:46] LABS: INR 1.5; Prothrombin Time 17.4 Seconds (9.4-12.1)
[2019-04-07 03:03] LABS: Calcium 8.6 mg/dL (8.6-10.3); Chol/HDL Ratio 4.4 (0-4.9); Magnesium 2.2 mg/dL (1.6-2.6); Phosphorous 3.2 mg/dL (2.7-4.5); Potassium 3.7 mEq/L (3.5-5.1)
[2019-04-07 06:55] LABS: Calcium 8.6 mg/dL (8.6-10.3); Potassium 3.9 mEq/L (3.5-5.1)
[2019-04-07] MEDS ORDERED: cefTRIAXone 1,000 MG in Water for inj. (sterile) 10 ML IVP SCH (09:00)
[2019-04-07] MEDS ORDERED: Azithromycin 500 MG in 0.9 % Sodium Chloride 250 ML IVPB SCH ×2 (09:00→22:00)
[2019-04-07] MEDS: Nicotine 14 MG PATCH.TD24 TD SCH (10:33)
[2019-04-07] MEDS: cefTRIAXone 1,000 MG in 0.9 % Sodium Chloride Mini Bag 100 ML IVPB SCH (10:38)
[2019-04-07] MEDS: *HR* HYDROcodone/Acet 10/325 mg TABLET PO PRN ×2 (14:46→22:55)
[2019-04-07] MEDS ORDERED: 0.9 % Sodium Chloride 1,000 ML IVC SCH (16:30)
[2019-04-07] MEDS ORDERED: *HR* Warfarin 5 MG TABLET PO ONE ×2 (18:00)
[2019-04-07] MEDS ORDERED: Warfarin perPT PO PRN (18:00)
[2019-04-07] MEDS ORDERED: rOPINIRole 1 MG TABLET PO SCH (21:00)
[2019-04-07] MEDS ORDERED: *HR* Warfarin 5 MG TABLET PO SCH (21:15)
[2019-04-07] MEDS ORDERED: Ondansetron 4 MG/2 ML VIAL IVP ONE (22:53)
[2019-04-08 05:06] LABS: Basophils % 0.3 %; Eosinophils # 0.1 K/mcL (0.0-0.6); Eosinophils % 0.6 %; Hematocrit 34.9 % (35.3-44.9); Hemoglobin 11.9 g/dL (11.5-15.4); INR 1.4; Immature Granulocytes % 0.5 % (0-4); Lymphocytes # 1.9 K/mcL (0.6-4.6); Lymphocytes % 19.4 %; Mean Corpuscular HGB Conc 34.1 g/dL (31.6-35.5); Mean Corpuscular Hemoglobin 32.2 pg (28.0-33.3); Mean Corpuscular Volume 94.6 fL (83.0-100.0); Mean Platelet Volume 9.3 fL (9.4-12.4); Monocytes # 0.8 K/mcL (0.0-1.3); Monocytes % 7.9 %; Neutrophils # 6.8 K/mcL (1.6-8.9); Platelet Count 365 K/mcL (140-400); Prothrombin Time 15.5 Seconds (9.4-12.1); Red Blood Count 3.69 M/mcL (3.82-4.97); Red Cell Distribution Width 15.5 % (11.5-14.5); Segmented Neutrophils % 71.3 %; White Blood Count 9.6 K/mcL (4.3-11.1)
[2019-04-08 05:15] LABS: Complement C3 142 mg/dL (87-200)
[2019-04-08] MEDS ORDERED: Ondansetron 4 MG/2 ML VIAL IVP ONE (05:19)
[2019-04-08] MEDS: *HR* HYDROcodone/Acet 10/325 mg TABLET PO PRN (05:19)
[2019-04-08 05:22] LABS: BUN/Creatinine Ratio 12 (6-26); Blood Urea Nitrogen 11 mg/dL (6-20); Calcium 9.2 mg/dL (8.6-10.3); Carbon Dioxide 24 mEq/L (23-29); Chloride 103 mEq/L (98-107); Glucose 123 mg/dL (70-105); Osmolality,Calculated 285 (280-300); Potassium 3.8 mEq/L (3.5-5.1); Sodium 137 mEq/L (136-145); eGFR For African Americans > 60 (> 60); eGFR For Non-African Americans > 60 (> 60)
[2019-04-08 05:23] LABS: Uric Acid 7.9 mg/dL (2.3-7.6)
[2019-04-08] MEDS ORDERED: hydroCHLOROthiazide 25 MG TABLET PO SCH (09:00)
[2019-04-08] MEDS ORDERED: Azithromycin 250 MG TABLET PO SCH (09:00)
[2019-04-08] MEDS ORDERED: predniSONE 1 MG TABLET PO SCH (09:00)
[2019-04-08] MEDS ORDERED: Divalproex (12 HR) 500 MG TABLET PO SCH (09:00)
[2019-04-08] MEDS ORDERED: Gabapentin 400 MG CAPSULE PO SCH (09:00)
[2019-04-08] MEDS ORDERED: amLODIPine 5 MG TABLET PO SCH (09:00)
[2019-04-08] MEDS ORDERED: Magnesium Oxide 400 MG TABLET PO SCH (09:00)
[2019-04-08] MEDS: cefTRIAXone 1,000 MG in 0.9 % Sodium Chloride Mini Bag 100 ML IVPB SCH (09:01)
[2019-04-08] MEDS: Nicotine 14 MG PATCH.TD24 TD SCH ×2 (09:03→09:19)
[2019-04-08] MEDS ORDERED: Acetaminophen 325 MG TABLET PO ONE (09:28)
[2019-04-08 11:09] VITALS: BP 127/86
[2019-04-08] MEDS ORDERED: *HR* Warfarin 5 MG TABLET PO ONE (18:00)
[2019-04-08] MEDS ORDERED: clonazePAM 1 MG TABLET PO SCH (21:00)
[2019-04-10 09:04] LABS: ANA IgG by ELISA NONE DETECTED (None Detected); Serine Protease-3 Antibody 0 AU/mL (0-19)
[2019-04-10] MEDS ORDERED: *HR* Warfarin 5 MG TABLET PO SCH (21:07)
[2019-04-11 14:16] LABS: Beta Globulin (PEP) 0.76 g/dL (0.48-1.10)
[2019-04-11 15:18] LABS: IFE Reflexed IFE Done; Immunoglobulin A 136 mg/dL (68-408); Immunoglobulin G 598 mg/dL (768-1632); Immunoglobulin M 51 mg/dL (35-263)
== END 2019-04-08 11:58 | disposition home or self-care (01) ==
LOC: 2ANU 16:40 → EMEROOARM 16:40 → 2ANU 20:41
PROVIDERS: ADMIT Internal Medicine; ATTEND Internal Medicine

== ENCOUNTER 2022-02-16 22:28 | Inpatient (IN) ==
[2022-02-17 03:50] LABS: Basophils % 0.2 %; Eosinophils # 0.1 K/mcL (0.0-0.6); Eosinophils % 0.8 %; Hematocrit 27.9 % (35.3-44.9); Immature Granulocytes % 0.6 % (0-4); Lymphocytes # 1.5 K/mcL (0.6-4.6); Lymphocytes % 13.1 %; Mean Corpuscular HGB Conc 34.1 g/dL (31.6-35.5); Mean Corpuscular Hemoglobin 31.6 pg (28.0-33.3); Mean Corpuscular Volume 92.7 fL (83.0-100.0); Mean Platelet Volume 10.7 fL (9.4-12.4); Monocytes # 1.1 K/mcL (0.0-1.3); Monocytes % 9.7 %; Neutrophils # 8.8 K/mcL (1.6-8.9); Platelet Count 328 K/mcL (140-400); Red Blood Count 3.01 M/mcL (3.82-4.97); Segmented Neutrophils % 75.6 %; White Blood Count 11.6 K/mcL (4.3-11.1)
[2022-02-17 03:51] LABS: Hemoglobin 9.5 g/dL (11.5-15.4)
[2022-02-17 03:54] LABS: INR 4.3
[2022-02-17 03:57] LABS: Activated Partial Thrombo Time 58.5 Seconds (26.0-36.0)
[2022-02-17 03:58] LABS: ABG Base Excess -1 mEq/L (-2 to 3); ABG HCO3 24 mEq/L (21-27); ABG Oxygen Saturation 86 % (95-98); ABG PCO2 40 mmHg (35-45); ABG PH 7.39 pH Units (7.32-7.45); ABG PO2 51 mmHg (85-104); ABG TCO2 26 mEq/L (20-26)
[2022-02-17 04:00] LABS: Prothrombin Time 47.1 Seconds (9.4-12.1)
[2022-02-17 04:12] LABS: Alanine Aminotransferase 12 Units/L (7-52); Albumin 2.9 g/dL (3.5-5.7); Alkaline Phosphatase 89 Units/L (34-104); Aspartate Amino Transferase 19 Units/L (13-39); BUN/Creatinine Ratio 12 (6-26); Bilirubin,Indirect 0.3 mg/dL (0.0-1.0); Bilirubin,Total 0.3 mg/dL (0.3-1.0); Blood Urea Nitrogen 46 mg/dL (6-20); Carbon Dioxide 24 mEq/L (23-29); Chloride 97 mEq/L (98-107); Creatine Kinase 322 Units/L (30-223); Ethanol < 10 mg/dL (Less than 10); Globulin 2.8 g/dL (2.4-3.5); Glucose 92 mg/dL (70-105); Lipase 117 Units/L (11-82); Osmolality,Calculated 284 (280-300); Phosphorous 3.9 mg/dL (2.7-4.5); Potassium 3.4 mEq/L (3.5-5.1); Sodium 131 mEq/L (136-145); Total Protein 5.7 g/dL (6.4-8.9)
[2022-02-17 04:36] LABS: Troponin I < 0.03 ng/mL (< 0.04)
[2022-02-17] MEDS ORDERED: 0.9 % Sodium Chloride 1,000 ML IVC ONE (06:03)
[2022-02-17] MEDS ORDERED: Cyanocobalamin (B-12) 1,000 MCG/ML VIAL IM ONE (08:21)
[2022-02-17] MEDS ORDERED: Hydrocortisone Sodium Succ 100 MG/2 ML VIAL IVP SCH (09:00)
[2022-02-17] MEDS ORDERED: Cyanocobalamin (B-12) 1,000 MCG TABLET PO SCH (09:00)
[2022-02-17] MEDS ORDERED: predniSONE 5 MG TABLET PO SCH (09:00)
[2022-02-17] MEDS ORDERED: 0.9 % Sodium Chloride 1,000 ML IV ONE (09:12)
[2022-02-17] MEDS ORDERED: Ondansetron 4 MG/2 ML VIAL IVP PRN (10:05)
[2022-02-17] MEDS ORDERED: Naloxone 0.4 MG/ML INJ IVP PRN (10:05)
[2022-02-17] MEDS ORDERED: *HR* HYDROcodone/Acet 5/325 mg TABLET PO PRN (10:05)
[2022-02-17] MEDS ORDERED: Melatonin 3 MG TABLET PO PRN (10:05)
[2022-02-17] MEDS ORDERED: Acetaminophen 325 MG TABLET PO PRN (10:05)
[2022-02-17] MEDS ORDERED: 0.9 % Sodium Chloride 1,000 ML IVC SCH (10:15)
[2022-02-17] MEDS: Hydrocortisone Sodium Succ 100 MG/2 ML VIAL IVP SCH ×2 (13:49→18:38)
[2022-02-17 14:53] LABS: Sodium, Urine 64.1 mEq/L
[2022-02-17 15:06] LABS: Bilirubin,Urine Negative (Negative); Blood,Urine Moderate (Negative); Clarity,Urine Clear (Clear); Color,Urine Colorless (Yellow); Glucose,Urine (UA) Normal (Normal); Ketones,Urine Negative (Negative); Leukocyte Esterase,Urine Negative (Negative); Mucus,Urine Few per lpf (None-Few); Nitrite,Urine Negative (Negative); Protein,Urine Trace mg/dL (Neg-Trace); Specific Gravity,Urine 1.008 (1.010-1.025); Squamous Epithelial Cell,Urine Few per hpf (None-Few); Urobilinogen,Urine Normal (Normal)
[2022-02-17 16:24] VITALS: BP 122/68; PULSE 86; TEMP 97.9; O2SAT 91
[2022-02-17] MEDS ORDERED: rOPINIRole 1 MG TABLET PO SCH (21:00)
[2022-02-18] MEDS ORDERED: Hydrocortisone Sodium Succ 100 MG/2 ML VIAL IVP SCH (08:00)
== END 2022-02-17 19:15 | disposition left against medical advice (07) | DRG 469 ==
LOC: EMEROOARM 22:28 → 3ANU 22:28
PROVIDERS: ADMIT Internal Medicine; ATTEND Internal Medicine